=== PATIENT | male | born 1985 | race Hispanic/Latino ===

== ENCOUNTER 2018-09-16 12:53 | Inpatient (IN) | payer MEDICAID, SELFPAY ==
--- NOTE | 2018-09-16 13:09 | C.PDOC ---
History Of Present Illness 32 year old male presents to the ED complaining of swelling and redness to the right upper thigh area for 2 days. Reports it was initially a pimple and then he tried popping it and the redness and swelling increased. Associated symptoms include subjective fever. Also complains of heart palpitations "ongoing for a while". Denies any chest pain, diaphoresis, cough, shortness of breath, nausea or vomiting. Time Seen by Provider: 09/16/18 13:03 Chief Complaint (Nursing): Lower Extremity Problem/Injury History Per: Patient History/Exam Limitations: no limitations Onset/Duration Of Symptoms: Days Current Symptoms Are (Timing): Still Present Quality Of Symptoms: Painful, Swollen Past Medical History Reviewed: Historical Data, Nursing Documentation, Vital Signs Vital Signs: Last Vital Signs Temp 98.6 F 09/16/18 12:58 Pulse 112 H 09/16/18 12:58 Resp 18 09/16/18 12:58 BP 127/83 09/16/18 12:58 Pulse Ox 100 09/16/18 12:58 - Medical History PMH: No Chronic Diseases Surgical History: No Surg Hx Family History: States: No Known Family Hx - Social History Hx Alcohol Use: Yes Hx Substance Use: Yes - Immunization History Hx Tetanus Toxoid Vaccination: No Hx Influenza Vaccination: No Hx Pneumococcal Vaccination: No Review Of Systems Except As Marked, All Systems Reviewed And Found Negative. Constitutional: Positive for: Fever Cardiovascular: Positive for: Palpitations. Negative for: Chest Pain Respiratory: Negative for: Cough, Shortness of Breath Gastrointestinal: Negative for: Nausea, Vomiting Skin: Positive for: Other (swelling and redness to the right upper thigh area) Physical Exam - Physical Exam Appears: Non-toxic, No Acute Distress Skin: Warm, Dry, Other (Cellulitis noted to right upper inner thigh into the groin area. perineum spared. firm induration to inner fold of thigh. no focal fluctuance. healing scab in the middle of the redness. redness extends from right hip around inner groin to thigh and right gluteal fold. ) Head: Normacephalic Eye(s): bilateral: Normal Inspection Neck: Supple Chest: Symmetrical Cardiovascular: Rhythm Regular, No Murmur Respiratory: No Rales, No Rhonchi, No Wheezing, Other (NARD) Male Genital: Other (no abnormality, scrotum normal) Neurological/Psych: Oriented x3, Normal Speech Gait: Steady ED Course And Treatment - Laboratory Results Result Diagrams: 09/16/18 13:43 09/16/18 13:43 O2 Sat by Pulse Oximetry: 100 (RA) Pulse Ox Interpretation: Normal Progress - Re-Evaluation Re-evaluation Note: 09/16/18 16:54 IMPROVED. D/W DR DAMIAN WILL ADMIT - Data Reviewed Data Reviewed: Lab, Diagnostic imaging, EKG, Old records Medical Decision Making Medical Decision Making: Plan - CT lower ext - EKG - Bloodwork - Toradol 30mg IVP - Morphine 2mg IVP - Vancomycin IVPB Disposition Counseled Patient/Family Regarding: Studies Performed, Diagnosis - Disposition Disposition: HOSPITALIZED Disposition Time: 16:55 Condition: SERIOUS Forms: [facility] (Latvian) - POA Present On Arrival: None - Clinical Impression Clinical Impression: Cellulitis of thigh - Scribe Statement The provider has reviewed the documentation as recorded by the Tannaibel Diaz All medical record entries made by the Tannaibel were at my direction and personally dictated by me. I have reviewed the chart and agree that the record accurately reflects my personal performance of the history, physical exam, medical decision making, and the department course for this patient. I have also personally directed, reviewed, and agree with the discharge instructions and disposition.
[2018-09-16] MEDS ORDERED: Vancomycin 1 GM 1 GM/250 ML BAG IVPB ONE (13:28)
[2018-09-16] MEDS ORDERED: Vancomycin 1 GM 1 GM/250 ML BAG IV SCH (13:30)
[2018-09-16 13:50] LABS: BASO # 0.1 K/uL (0.0-0.2); BASO % 0.6 % (0.0-2.0); EOS # 0.1 K/uL (0.0-0.7); EOS % 0.7 % (0.0-4.0); HEMOGLOBIN 14.6 g/dL (12.0-18.0); LYMPH # 1.9 K/uL (1.0-4.3); LYMPH % 11.2 % (20.0-40.0); MEAN CORPUSCULAR HEMOGLOBIN 30.5 pg (27.0-31.0); MEAN CORPUSCULAR HGB CONC 33.9 g/dL (33.0-37.0); MEAN PLATELET VOLUME 9.3 fL (7.2-11.7); MONO # 1.7 K/uL (0.0-0.8); MONO % 9.7 % (0.0-10.0); NEUT # 13.4 K/uL (1.8-7.0); NEUT % 77.8 % (50.0-75.0); NRBC % 0.1 % (0.0-2.0); RBC 4.77 Mil/uL (4.40-5.90); RED CELL DISTRIBUTION WIDTH 12.8 % (11.5-14.5); WHITE BLOOD COUNT 17.2 K/uL (4.8-10.8)
[2018-09-16 14:01] LABS: BLOOD UREA NITROGEN 9 mg/dL (9-20); CALCIUM 9.2 mg/dl (8.6-10.4); GFR NON-AFRICAN AMERICAN > 60
[2018-09-16] MEDS ORDERED: Iodixanol 320 MG/ML 100 ML BOTTLE IV ONE (15:09)
--- NOTE | 2018-09-16 16:40 | CT ---
Date of service: 09/16/2018.. PROCEDURE: CT RIGHT LOWER EXTREMITY. HISTORY: CELLULITIS R INNER THIGH R/O ABSCESS. COMPARISON: None available.. TECHNIQUE: Technique: CT scan of the right lower extremity performed in standard fashion following intravenous injection of approximately 100 cc Visipaque 320 contrast material. Additional 2D sagittal and coronal reformats generated. Radiation dose: Total exam DLP = 336.98 mGy-cm. This CT exam was performed using one or more of the following dose reduction techniques: Automated exposure control, adjustment of the mA and/or kV according to patient size, and/or use of iterative reconstruction technique.. FINDINGS: The current study reveals infiltration and a small amount of what probably represents some interstitial fluid in the subcutaneous tissues/fat of proximal 1/2 medial aspect left thigh with overlying skin thickening consistent with a cellulitis tapering along its inferior border. There are no loculated - drainable fluid or abscess collections identified. No evidence of subcutaneous emphysema. The osseous structures appear intact without evidence of cortical destructive changes. No evidence of acute displaced fracture nor dislocation the BONES: No evidence of acute displaced fracture nor dislocation. Osseous structures appear intact. There are no cortical destructive changes. OTHER FINDINGS: None.. IMPRESSION: Findings consistent with a cellulitis involving the subcutaneous tissues/fat proximal 1/2 medial aspect right thigh with what could represent a small amount of interstitial fluid however no drainable/loculated fluid or abscess collections identified. There is also overlying skin thickening. Findings discussed with Dr. Romero at approximately 4:10 p.m. with written down and read back verification.
[2018-09-16] MEDS: Piperacill/Tazo 3.375gm in Dex 3.375 GM/50 ML BAG IVPB SCH (20:26)
[2018-09-16] MEDS ORDERED: Piperacillin/Tazobact 3.375 gm 100 ML IVPB ONE (20:29)
--- NOTE | 2018-09-16 20:35 | CP.PCM.HP ---
History of Present Illness - History of Present Illness History of Present Illness: PGY-1 Medicine H&P for Dr. Cleveland's service Patient is a 32 y.o male with no significant past medical history presents to emergency department for evaluation of pain on his right upper medial thigh. Patient states that 4 days ago he noted a cyst at that site. He attempted to pop the cyst but then "it went crazy". Patient admits to subjective fevers. Patient states the pain is located on the upper right medial thigh extends downward, rates as a 10/10 constant pain, and described as burning and sharp. Patient states that he took no medications for the pain at home. Patient denies previous episodes of this in the past. Patient admits to fevers. Patient denies chills, chest pain, shortness of breath, n/v, constipation or diarrhea, weakness, dysuria, and discharge/oozing/pus. PMH- Denies PSH- Denies FH- Heart Problems (grandfather) Meds- Denies Allergies- Denies Social- 5 year pack history of smoking 1-2 cigarettes, EtOh use in social occasions, Denies recreational drug use Code: Full Code PMD: Denies Present on Admission - Present on Admission Any Indicators Present on Admission: No Review of Systems - Review of Systems Review of Systems: 12 point ROS obtained and noted as in HPI Past Patient History - Past Social History Smoking Status: Current Some Days Smoker - PSYCHIATRIC Hx Substance Use: Yes - SURGICAL HISTORY Hx Surgeries: No Meds Allergies/Adverse Reactions: Allergies Allergy/AdvReac Type Severity Reaction Status Date / Time No Known Allergies Allergy Unverified 09/16/18 13:01 Physical Exam - Constitutional Appears: Non-toxic, No Acute Distress - Head Exam Head Exam: NORMAL INSPECTION, NORMOCEPHALIC - Eye Exam Eye Exam: EOMI, Normal appearance. absent: Nystagmus, Scleral icterus - ENT Exam ENT Exam: Mucous Membranes Moist - Respiratory Exam Respiratory Exam: Clear to Auscultation Bilateral, NORMAL BREATHING PATTERN. absent: Decreased Breath Sounds, Rales, Rhonchi, Wheezes - Cardiovascular Exam Cardiovascular Exam: REGULAR RHYTHM, +S1, +S2. absent: Tachycardia - GI/Abdominal Exam GI & Abdominal Exam: Normal Bowel Sounds, Soft. absent: Diminished Bowel Sounds, Distended, Firm, Guarding, Tenderness - Extremities Exam Extremities exam: Positive for: normal inspection, tenderness. Negative for: calf tenderness, pedal edema Additional comments: erythema of right upper medial thigh extends downward and upwards to groin area no oozing draining or pus noted central site where boil was popped with black granulation tissue - Neurological Exam Neurological exam: Alert, Oriented x3 - Psychiatric Exam Psychiatric exam: Normal Affect, Normal Mood - Skin Skin Exam: Intact, Normal Color Results - Vital Signs Recent Vital Signs: Last Vital Signs Temp 97.6 F 09/16/18 17:41 Pulse 83 09/16/18 17:41 Resp 16 09/16/18 17:41 BP 122/76 09/16/18 17:41 Pulse Ox 100 09/16/18 17:41 - Labs Result Diagrams: 09/16/18 13:43 09/16/18 13:43 Labs: Laboratory Results - last 24 hr 09/16/18 09/16/18 13:43 13:43 WBC 17.2 H RBC 4.77 Hgb 14.6 Hct 42.9 MCV 90.0 MCH 30.5 MCHC 33.9 RDW 12.8 Plt Count 221 MPV 9.3 Neut % (Auto) 77.8 H Lymph % (Auto) 11.2 L Dickenson % (Auto) 9.7 Eos % (Auto) 0.7 Baso % (Auto) 0.6 Neut # (Auto) 13.4 H Lymph # (Auto) 1.9 Dickenson # (Auto) 1.7 H Eos # (Auto) 0.1 Baso # (Auto) 0.1 Sodium 138 Potassium 4.0 Chloride 95 L Carbon Dioxide 33 H Anion Gap 14 BUN 9 Creatinine 0.9 Est GFR ( Amer) > 60 Est GFR (Non-Af Amer) > 60 Random Glucose 97 Calcium 9.2 Assessment & Plan - Assessment and Plan (Free Text) Assessment: 32 year old male with no pmh is admitted for cellulitis of right upper medial thigh. Plan: Cellulitis CT Lower extremity- Findings consistent w/ a cellulitis involving the subcutaneous tissues/fat proximal 1/2 medial aspect right thigh with what could represent a small amount of interstitial fluid but no abscess collections identified Afebrile Leukocytosis noted Vancomycine 1gm IVPB q 12 freda Zosyn 3.375gm IVPB q6 freda A1C pending PPx GI ppx: not indicated at this time DVT ppx: not indicated at this time
[2018-09-17] MEDS: Piperacill/Tazo 3.375gm in Dex 3.375 GM/50 ML BAG IVPB SCH ×4 (02:30→21:37)
[2018-09-17 07:18] LABS: BASO % 0.2 % (0.0-2.0); EOS # 0.2 K/uL (0.0-0.7); EOS % 1.9 % (0.0-4.0); LYMPH # 1.4 K/uL (1.0-4.3); LYMPH % 10.7 % (20.0-40.0); MEAN CORPUSCULAR HEMOGLOBIN 30.6 pg (27.0-31.0); MEAN PLATELET VOLUME 9.7 fL (7.2-11.7); MONO # 1.1 K/uL (0.0-0.8); NEUT # 9.9 K/uL (1.8-7.0); NEUT % 78.2 % (50.0-75.0); RBC 4.09 Mil/uL (4.40-5.90); RED CELL DISTRIBUTION WIDTH 12.5 % (11.5-14.5); WHITE BLOOD COUNT 12.7 K/uL (4.8-10.8)
[2018-09-17 07:36] LABS: HEMOGLOBIN 12.5 g/dL (12.0-18.0)
[2018-09-17 08:16] LABS: ALB/GLOB RATIO 1.2 (1.0-2.1); ALBUMIN 3.4 g/dL (3.5-5.0); ALT/SGPT 26 U/L (21-72); AST/SGOT 19 U/L (17-59); BLOOD UREA NITROGEN 14 mg/dL (9-20); CALCIUM 8.8 mg/dl (8.6-10.4); GFR NON-AFRICAN AMERICAN > 60
--- NOTE | 2018-09-17 16:37 | CP.PCM.PN ---
Subjective - Date & Time of Evaluation Date of Evaluation: 09/17/18 Time of Evaluation: 09:40 - Subjective Subjective: Medicine progress note ( Dr. Cleveland's service) Patient was seen and examined at bedside. Patient reports that he is doing well and has no acute complaints. Patient denies any symptoms of fever, chills, nausea, vomiting, abdominal pain, chest pain, palpitations and shortness of breath. Patient admits to tolerable pain of right inner thigh cellulitis Objective - Vital Signs/Intake and Output Vital Signs (last 24 hours): Temp Pulse Resp BP Pulse Ox 98.3 F 77 18 120/68 98 09/17/18 07:00 09/17/18 07:00 09/17/18 07:00 09/17/18 07:00 09/17/18 07:00 Intake and Output: 09/17/18 09/17/18 06:59 18:59 Intake Total 420 Balance 420 - Medications Medications: Current Medications Vancomycin HCl (Vancomycin 1gm In Normal Saline Addvantage) 1 gm in 250 mls @ 1 66.667 mls/hr IV STAT [facility]; Protocol Last Admin: 09/16/18 13:42 Dose: 166.667 mls/hr Piperacillin Sod/Tazobactam Sod (Zosyn 3.375 Gm Iv Premix) 3.375 gm in 50 mls @ 200 mls/hr IVPB Q6H [facility]; Protocol Last Admin: 09/17/18 14:15 Dose: 200 mls/hr Vancomycin HCl 1,000 mg/ (Sodium Chloride) 250 mls @ 166.6 mls/hr IVPB Q12H [facility]; Protocol Last Admin: 09/17/18 14:55 Dose: 166.6 mls/hr Ketorolac Tromethamine (Toradol) 30 mg IVP Q6H PRN PRN Reason: Pain, Mild (1-3) Last Admin: 09/16/18 20:58 Dose: 30 mg - Labs Labs: 09/17/18 07:09 09/17/18 07:09 - Constitutional Appears: Well, No Acute Distress - Head Exam Head Exam: ATRAUMATIC, NORMAL INSPECTION - Eye Exam Eye Exam: EOMI, Normal appearance - ENT Exam ENT Exam: Mucous Membranes Moist - Respiratory Exam Respiratory Exam: Clear to Ausculation Bilateral, NORMAL BREATHING PATTERN - Cardiovascular Exam Cardiovascular Exam: REGULAR RHYTHM, +S1, +S2 - GI/Abdominal Exam GI & Abdominal Exam: Soft, Normal Bowel Sounds. absent: Distended, Firm, Guarding, Rigid, Tenderness - Extremities Exam Extremities Exam: absent: Calf Tenderness, Pedal Edema Additional comments: Right upper inner thigh cellulitis without drainage, firm Central site of boil is with black granulation tissue - Back Exam Back Exam: NORMAL INSPECTION - Neurological Exam Neurological Exam: Alert, Awake, Oriented x3 Neuro motor strength exam: Right Lower Extremity: 5 - Psychiatric Exam Psychiatric exam: Normal Affect - Skin Skin Exam: Normal Color Assessment and Plan (1) Cellulitis of right thigh Assessment & Plan: Imaging: * Lower extremity CT (09/16/18): Findings consistent with a cellulitis involving the subcutaneous tissues/fat proximal 1/2 medial aspect right thigh with what could represent a small amount of interstitial fluid however no drainable/loculated fluid or abscess collections identified. There is also overlying skin thickening. Labs: * WBC downtrending * BC negative after 24 hours * No wound culture due to no drainage Medications: Vancomycin 1gm IVPB Q12H Zosyn 3.375gm IVPB Q6H Florastor 250mg PO BID Toradol 30mg IV Q6H PRN F/u HgbA1C Status: Acute (2) Prophylactic measure Assessment & Plan: GI and DVT PPx: Not indicated All plans and management discussed with Dr. Cleveland Status: Acute
[2018-09-17] MEDS: Saccharomyces Boulardi 250 mg Cap PO SCH (17:34)
[2018-09-18] MEDS: Piperacill/Tazo 3.375gm in Dex 3.375 GM/50 ML BAG IVPB SCH ×4 (02:43→19:04)
[2018-09-18 08:02] LABS: BASO % 0.4 % (0.0-2.0); EOS # 0.3 K/uL (0.0-0.7); EOS % 3.3 % (0.0-4.0); HEMOGLOBIN 12.5 g/dL (12.0-18.0); LYMPH # 1.4 K/uL (1.0-4.3); LYMPH % 14.7 % (20.0-40.0); MEAN CELL VOLUME 90.2 fL (80.0-94.0); MEAN CORPUSCULAR HEMOGLOBIN 30.7 pg (27.0-31.0); MEAN PLATELET VOLUME 9.2 fL (7.2-11.7); MONO # 0.8 K/uL (0.0-0.8); NEUT # 6.8 K/uL (1.8-7.0); NEUT % 72.6 % (50.0-75.0); NRBC % 0.1 % (0.0-2.0); RBC 4.07 Mil/uL (4.40-5.90); RED CELL DISTRIBUTION WIDTH 12.6 % (11.5-14.5); WHITE BLOOD COUNT 9.3 K/uL (4.8-10.8)
[2018-09-18 08:23] LABS: ALB/GLOB RATIO 1.2 (1.0-2.1); ALBUMIN 3.4 g/dL (3.5-5.0); ALT/SGPT 21 U/L (21-72); AST/SGOT 15 U/L (17-59); BLOOD UREA NITROGEN 15 mg/dL (9-20); CALCIUM 8.5 mg/dl (8.6-10.4); GFR NON-AFRICAN AMERICAN > 60
--- NOTE | 2018-09-18 08:50 | CP.PCM.PN ---
Subjective - Date & Time of Evaluation Date of Evaluation: 09/18/18 Time of Evaluation: 07:45 - Subjective Subjective: Medicine progress note ( Dr. Cleveland's service) Patient was seen and examined at bedside, resting in bed comfortably. Patient reports that he is doing well and has no acute complaints. Patient denies any symptoms of fever, chills, nausea, vomiting, abdominal pain, chest pain, palpitations and shortness of breath. Patient admits to tolerable pain of right inner thigh cellulitis, however, patient is still with severe pain on palpation. Approximately 10-15cc of pus drainage this morning and culture was taken. Objective - Vital Signs/Intake and Output Vital Signs (last 24 hours): Temp Pulse Resp BP Pulse Ox 98.7 F 98 H 20 164/81 H 98 09/18/18 07:00 09/18/18 07:00 09/18/18 07:00 09/18/18 07:00 09/18/18 07:00 Intake and Output: 09/18/18 09/18/18 06:59 18:59 Intake Total 530 Balance 530 - Medications Medications: Current Medications Piperacillin Sod/Tazobactam Sod (Zosyn 3.375 Gm Iv Premix) 3.375 gm in 50 mls @ 200 mls/hr IVPB Q6H [facility]; Protocol Last Admin: 09/18/18 07:45 Dose: 200 mls/hr Vancomycin HCl 1,000 mg/ (Sodium Chloride) 250 mls @ 166.6 mls/hr IVPB Q12H [facility]; Protocol Last Admin: 09/18/18 01:03 Dose: 166.6 mls/hr Ibuprofen (Motrin Tab) 600 mg PO Q4H PRN PRN Reason: Pain, Mild (1-3) Ketorolac Tromethamine (Toradol) 30 mg IVP Q6H PRN PRN Reason: Pain, severe (8-10) Ketorolac Tromethamine (Toradol) 15 mg IVP Q6 PRN PRN Reason: Pain, moderate (4-7) Saccharomyces Boulardii (Florastor) 250 mg PO BID [facility] Last Admin: 09/17/18 17:34 Dose: 250 mg - Labs Labs: 09/18/18 07:53 09/18/18 07:53 - Constitutional Appears: Well, No Acute Distress - Head Exam Head Exam: ATRAUMATIC, NORMAL INSPECTION - Eye Exam Eye Exam: EOMI, Normal appearance - ENT Exam ENT Exam: Mucous Membranes Moist - Respiratory Exam Respiratory Exam: Clear to Ausculation Bilateral, NORMAL BREATHING PATTERN. absent: Chest Wall Tenderness, Decreased Breath Sounds, Prolonged Expiratory Phase, Rales, Rhonchi, Wheezes - Cardiovascular Exam Cardiovascular Exam: REGULAR RHYTHM, +S1, +S2 - GI/Abdominal Exam GI & Abdominal Exam: Soft, Normal Bowel Sounds. absent: Firm, Guarding, Rigid, Tenderness - Extremities Exam Extremities Exam: Normal Inspection. absent: Calf Tenderness, Pedal Edema Additional comments: Right upper inner thigh cellulitis currently with drainage still firm Central site of boil is with pus and blood drainage - Back Exam Back Exam: absent: CVA tenderness (L), CVA tenderness (R) - Neurological Exam Neurological Exam: Alert, Awake, Oriented x3 - Psychiatric Exam Psychiatric exam: Normal Affect, Normal Mood - Skin Skin Exam: Normal Color Assessment and Plan (1) Cellulitis of right thigh Assessment & Plan: Consultation: General Surgery, Dr. Thompson * Management as per recommendation Imaging: * Lower extremity CT (09/16/18): Findings consistent with a cellulitis involving the subcutaneous tissues/fat proximal 1/2 medial aspect right thigh with what could represent a small amount of interstitial fluid however no draina ble/loculated fluid or abscess collections identified. There is also overlying skin thickening. Labs: * WBC downtrending * BC negative after 24 hours * Follow up wound culture * Motrin 600mg PO Q6H PRN (Mild pain control) * Toradol 15mg IV Q6H PRN (Moderate pain control_ * Toradol 30mg IV Q6H PRN (Severe pain control) * HgbA1C: 4.8 Medications: Vancomycin 1gm IVPB Q12H, Vanc trough 09/18/18: 8.6 Zosyn 3.375gm IVPB Q6H Florastor 250mg PO BID Motrin 600mg PO Q6H PRN (Mild pain control) Toradol 15mg IV Q6H PRN (Moderate pain control_ Toradol 30mg IV Q6H PRN (Severe pain control) Status: Acute (2) Prophylactic measure Assessment & Plan: DVT PPx: SCDs, no chemical agent indicated at this time GI: Not indicated at this time All plans and management discussed with Dr. Cleveland Status: Acute
[2018-09-18] MEDS: Saccharomyces Boulardi 250 mg Cap PO SCH ×2 (10:17→19:04)
[2018-09-18] MEDS ORDERED: Bupivacaine-Epi 0.5%-1:200,000 PF Inj IJ ONE (16:26)
--- NOTE | 2018-09-18 18:49 | CP.PCM.CON ---
History of Present Illness - History of Present Illness History of Present Illness: General Surgery Consult Note for Dr. Thompson This is a 32M with no PMH who presents with four days of erythema, pain and swelling in his proximal right thigh. He was admitted and started on IV abx. The cellulitis improved significantly, however earlier today the cellutlitis collected and the skin broke and 15cc of purulence was expressed according to the medical records technician. At that time surgery was consulted. The patient denies any fevers chills chest pain or any new or concerning symptoms. I discussed with the patient that it maybe possible for this to continue draining and to resolve with warm compresses or I can surgically drain the remainder of the collection. He requested surgical incision and drainage. PMH- Denies PSH- Denies FH- Heart Problems (grandfather) Meds- Denies Allergies- Denies Social- 5 year pack history of smoking 1-2 cigarettes, EtOh use in social occasions, Denies recreational drug use Code: Full Code PMD: Denies Review of Systems - Review of Systems Review of Systems: 12 point review of symptoms conducted and negtaive except for erythema and swelling of her proximal thigh Past Patient History - Past Medical History & Family History Past Medical History?: Yes - Past Social History Smoking Status: Current Some Days Smoker - CARDIAC Hx Cardiac Disorders: No - PULMONARY Hx Respiratory Disorders: No - HEENT Hx HEENT Problems: No - RENAL Hx Chronic Kidney Disease: No - ENDOCRINE/METABOLIC Hx Endocrine Disorders: No - HEMATOLOGICAL/ONCOLOGICAL Hx Blood Disorders: No - INTEGUMENTARY Other/Comment: Cellulitis on right upper groin - MUSCULOSKELETAL/RHEUMATOLOGICAL Hx Musculoskeletal Disorders: No Hx Falls: No - GASTROINTESTINAL Hx Gastrointestinal Disorders: No - GENITOURINARY/GYNECOLOGICAL Hx Genitourinary Disorders: No - PSYCHIATRIC Hx Substance Use: Yes - SURGICAL HISTORY Hx Surgeries: No - ANESTHESIA Hx Anesthesia: No Hx Anesthesia Reactions: No Hx Malignant Hyperthermia: No Has any member of the family had a problem w/ anesthesia?: No Meds Allergies/Adverse Reactions: Allergies Allergy/AdvReac Type Severity Reaction Status Date / Time No Known Allergies Allergy Unverified 09/16/18 13:01 - Medications Medications: Current Medications Piperacillin Sod/Tazobactam Sod (Zosyn 3.375 Gm Iv Premix) 3.375 gm in 50 mls @ 200 mls/hr IVPB Q6H [facility]; Protocol Last Admin: 09/18/18 14:10 Dose: 200 mls/hr Vancomycin HCl 1,000 mg/ (Sodium Chloride) 250 mls @ 166.6 mls/hr IVPB Q12H [facility]; Protocol Last Admin: 09/18/18 12:46 Dose: 166.6 mls/hr Ibuprofen (Motrin Tab) 600 mg PO Q4H PRN PRN Reason: Pain, Mild (1-3) Ketorolac Tromethamine (Toradol) 30 mg IVP Q6H PRN PRN Reason: Pain, severe (8-10) Ketorolac Tromethamine (Toradol) 15 mg IVP Q6 PRN PRN Reason: Pain, moderate (4-7) Saccharomyces Boulardii (Florastor) 250 mg PO BID [facility] Last Admin: 09/18/18 10:17 Dose: 250 mg Physical Exam - Constitutional Appears: Non-toxic, No Acute Distress - Head Exam Head Exam: ATRAUMATIC, NORMOCEPHALIC - Eye Exam Eye Exam: EOMI - ENT Exam ENT Exam: Mucous Membranes Moist - Respiratory Exam Respiratory Exam: NORMAL BREATHING PATTERN - Cardiovascular Exam Cardiovascular Exam: +S1, +S2 - GI/Abdominal Exam GI & Abdominal Exam: Soft. absent: Tenderness - Extremities Exam Additional comments: right proximl thigh with swelling and erythema, with fluctuance - Neurological Exam Neurological exam: Alert, Oriented x3 - Psychiatric Exam Psychiatric exam: Normal Affect, Normal Mood - Skin Skin Exam: Dry, Intact Results - Vital Signs Recent Vital Signs: Last Vital Signs Temp 97.2 F L 09/18/18 15:00 Pulse 87 09/18/18 15:00 Resp 20 09/18/18 15:00 BP 107/58 L 09/18/18 15:00 Pulse Ox 98 09/18/18 15:00 - Labs Result Diagrams: 09/18/18 07:53 09/18/18 07:53 Labs: Laboratory Results - last 24 hr 09/17/18 09/18/18 09/18/18 07:09 07:53 07:53 WBC 9.3 RBC 4.07 L Hgb 12.5 Hct 36.8 MCV 90.2 MCH 30.7 MCHC 34.0 RDW 12.6 Plt Count 248 MPV 9.2 Neut % (Auto) 72.6 Lymph % (Auto) 14.7 L Iron % (Auto) 9.0 Eos % (Auto) 3.3 Baso % (Auto) 0.4 Neut # (Auto) 6.8 Lymph # (Auto) 1.4 Iron # (Auto) 0.8 Eos # (Auto) 0.3 Baso # (Auto) 0.0 Sodium 141 Potassium 4.3 Chloride 104 Carbon Dioxide 27 Anion Gap 13 BUN 15 Creatinine 0.8 Est GFR ( Amer) > 60 Est GFR (Non-Af Amer) > 60 Random Glucose 99 Hemoglobin A1c 4.8 Calcium 8.5 L Phosphorus 3.7 Magnesium 2.1 Total Bilirubin 0.4 AST 15 L D ALT 21 Alkaline Phosphatase 88 Total Protein 6.3 Albumin 3.4 L Globulin 2.8 Albumin/Globulin Ratio 1.2 Vancomycin Trough 09/18/18 11:12 WBC RBC Hgb Hct MCV MCH MCHC RDW Plt Count MPV Neut % (Auto) Lymph % (Auto) Iron % (Auto) Eos % (Auto) Baso % (Auto) Neut # (Auto) Lymph # (Auto) Iron # (Auto) Eos # (Auto) Baso # (Auto) Sodium Potassium Chloride Carbon Dioxide Anion Gap BUN Creatinine Est GFR ( Amer) Est GFR (Non-Af Amer) Random Glucose Hemoglobin A1c Calcium Phosphorus Magnesium Total Bilirubin AST ALT Alkaline Phosphatase Total Protein Albumin Globulin Albumin/Globulin Ratio Vancomycin Trough 8.6 Assessment & Plan - Assessment and Plan (Free Text) Assessment: 32M with uncomplicated thigh abscess Bedside inscsion and draingage continue medical managment per primary team. D/W Dr. Jay Gomez PGY3 Procedures - Time-Out Type of Procedure: Inscision and drainge Site of Procedure: Right thigh Correct Patient: Yes Correct Procedure: Yes X-Ray Marked: Yes Physician Name: Dr. Gomez - Incision and Drainage Site: Right proximal thigh Blade Size: 11 I & D Procedure: betadine prep Progress: An incision and counter incision was made and the wound was packed with 1/2incgh iodoform packing to achieve hemostasis.
[2018-09-19] MEDS: Piperacill/Tazo 3.375gm in Dex 3.375 GM/50 ML BAG IVPB SCH ×4 (02:00→20:52)
[2018-09-19 06:42] LABS: BASO % 0.4 % (0.0-2.0); EOS # 0.3 K/uL (0.0-0.7); EOS % 3.7 % (0.0-4.0); HEMOGLOBIN 12.3 g/dL (12.0-18.0); LYMPH # 1.6 K/uL (1.0-4.3); LYMPH % 18.7 % (20.0-40.0); MEAN CELL VOLUME 89.2 fL (80.0-94.0); MEAN CORPUSCULAR HEMOGLOBIN 29.9 pg (27.0-31.0); MEAN CORPUSCULAR HGB CONC 33.5 g/dL (33.0-37.0); MONO # 0.9 K/uL (0.0-0.8); NEUT # 5.7 K/uL (1.8-7.0); NEUT % 67.2 % (50.0-75.0); NRBC % 0.1 % (0.0-2.0); RBC 4.13 Mil/uL (4.40-5.90); RED CELL DISTRIBUTION WIDTH 12.5 % (11.5-14.5); WHITE BLOOD COUNT 8.5 K/uL (4.8-10.8)
[2018-09-19 07:00] LABS: ALB/GLOB RATIO 1.2 (1.0-2.1); ALBUMIN 3.3 g/dL (3.5-5.0); ALT/SGPT 25 U/L (21-72); AST/SGOT 18 U/L (17-59); BLOOD UREA NITROGEN 14 mg/dL (9-20); CALCIUM 8.4 mg/dl (8.6-10.4); GFR NON-AFRICAN AMERICAN > 60
[2018-09-19] MEDS: Saccharomyces Boulardi 250 mg Cap PO SCH ×2 (09:36→17:25)
--- NOTE | 2018-09-19 11:14 | CP.PCM.PN ---
Subjective - Date & Time of Evaluation Date of Evaluation: 09/19/18 Time of Evaluation: 07:00 - Subjective Subjective: Surgery progres note for Dr. Thompson Pt seen and examined this AM. No adverse events overnight. Patient reports pain in the groin but denies fevers or chills. Patient expressed desire to leave the hospital but was informed that that could have severe consequences including a systemic infection. Objective - Vital Signs/Intake and Output Vital Signs (last 24 hours): Temp Pulse Resp BP Pulse Ox 98 F 72 18 111/68 98 09/19/18 08:19 09/19/18 08:19 09/19/18 08:19 09/19/18 08:19 09/19/18 08:19 Intake and Output: 09/19/18 09/19/18 06:59 18:59 Intake Total 530 Balance 530 - Medications Medications: Current Medications Piperacillin Sod/Tazobactam Sod (Zosyn 3.375 Gm Iv Premix) 3.375 gm in 50 mls @ 200 mls/hr IVPB Q6H [facility]; Protocol Last Admin: 09/19/18 07:47 Dose: 200 mls/hr Vancomycin HCl 1,000 mg/ (Sodium Chloride) 250 mls @ 166.6 mls/hr IVPB Q12H [facility]; Protocol Last Admin: 09/19/18 01:15 Dose: 166.6 mls/hr Ibuprofen (Motrin Tab) 600 mg PO Q4H PRN PRN Reason: Pain, Mild (1-3) Ketorolac Tromethamine (Toradol) 30 mg IVP Q6H PRN PRN Reason: Pain, severe (8-10) Last Admin: 09/19/18 05:17 Dose: 30 mg Ketorolac Tromethamine (Toradol) 15 mg IVP Q6 PRN PRN Reason: Pain, moderate (4-7) Saccharomyces Boulardii (Florastor) 250 mg PO BID [facility] Last Admin: 09/19/18 09:36 Dose: 250 mg - Labs Labs: 09/19/18 06:36 09/19/18 06:36 - Constitutional Appears: Well, Non-toxic, No Acute Distress - Head Exam Head Exam: ATRAUMATIC, NORMOCEPHALIC - Eye Exam Eye Exam: Normal appearance. absent: Conjunctival injection, Scleral icterus - ENT Exam ENT Exam: Mucous Membranes Moist, Normal Oropharynx - Respiratory Exam Respiratory Exam: NORMAL BREATHING PATTERN. absent: Accessory Muscle Use, Respiratory Distress - Cardiovascular Exam Cardiovascular Exam: RRR - GI/Abdominal Exam GI & Abdominal Exam: Soft. absent: Distended - Extremities Exam Extremities Exam: absent: Calf Tenderness, Pedal Edema Additional comments: right upper thigh with incision site with packing in place, moderate amount of thick, purulent fluid drainage expressed. moderate amount of surrounding erythema and induration - Neurological Exam Neurological Exam: Alert, Awake, Oriented x3 - Psychiatric Exam Psychiatric exam: Agitated, Normal Affect - Skin Skin Exam: Dry, Normal Color, Warm Assessment and Plan - Assessment and Plan (Free Text) Assessment: 32M with right groin abscess POD #1 s/p incision and drainage Plan: Continue antibiotics Continue PRN pain medications F/U culture Trend CBC Continue daily packing changes Discussed with DR. Jay Nascimento, PGY2
--- NOTE | 2018-09-19 13:45 | CP.PCM.PN ---
<Levar Maxwell - Last Filed: 09/19/18 13:42> Subjective - Date & Time of Evaluation Date of Evaluation: 09/19/18 Time of Evaluation: 13:42 - Subjective Subjective: PGY-1 Medicine Progress Note for Dr. Gutierrez's service Patient seen and examined at bedside. Patient states his leg is sore near the site of I&D. POD 1 s/p I&D. Patient reports mild headache. Patient denies fevers, chills, chest pain, sob, n/v, constipation or diarrhea, dysuria, and palpitations. Objective - Vital Signs/Intake and Output Vital Signs (last 24 hours): Temp Pulse Resp BP Pulse Ox 98 F 72 18 111/68 98 09/19/18 08:19 09/19/18 08:19 09/19/18 08:19 09/19/18 08:19 09/19/18 08:19 Intake and Output: 09/19/18 09/19/18 06:59 18:59 Intake Total 530 Balance 530 - Medications Medications: Current Medications Piperacillin Sod/Tazobactam Sod (Zosyn 3.375 Gm Iv Premix) 3.375 gm in 50 mls @ 200 mls/hr IVPB Q6H [facility]; Protocol Last Admin: 09/19/18 07:47 Dose: 200 mls/hr Vancomycin HCl 1,000 mg/ (Sodium Chloride) 250 mls @ 166.6 mls/hr IVPB Q12H [facility]; Protocol Last Admin: 09/19/18 13:18 Dose: 166.6 mls/hr Ibuprofen (Motrin Tab) 600 mg PO Q4H PRN PRN Reason: Pain, Mild (1-3) Ketorolac Tromethamine (Toradol) 30 mg IVP Q6H PRN PRN Reason: Pain, severe (8-10) Last Admin: 09/19/18 05:17 Dose: 30 mg Ketorolac Tromethamine (Toradol) 15 mg IVP Q6 PRN PRN Reason: Pain, moderate (4-7) Saccharomyces Boulardii (Florastor) 250 mg PO BID [facility] Last Admin: 09/19/18 09:36 Dose: 250 mg - Labs Labs: 09/19/18 06:36 09/19/18 06:36 - Additional Findings Additional findings: - Constitutional Appears: Well, No Acute Distress - Head Exam Head Exam: ATRAUMATIC, NORMAL INSPECTION - Eye Exam Eye Exam: EOMI, Normal appearance - ENT Exam ENT Exam: Mucous Membranes Moist - Respiratory Exam Respiratory Exam: Clear to Ausculation Bilateral, NORMAL BREATHING PATTERN. absent: Chest Wall Tenderness, Decreased Breath Sounds, Prolonged Expiratory Phase, Rales, Rhonchi, Wheezes - Cardiovascular Exam Cardiovascular Exam: REGULAR RHYTHM, +S1, +S2 - GI/Abdominal Exam GI & Abdominal Exam: Soft, Normal Bowel Sounds. absent: Firm, Guarding, Rigid, Tenderness - Extremities Exam Extremities Exam: Normal Inspection. absent: Calf Tenderness, Pedal Edema Additional comments: Right upper inner thigh cellulitis packed Regressing from initial from demarcation; noted less swelling/erythema from admission - Back Exam Back Exam: absent: CVA tenderness (L), CVA tenderness (R) - Neurological Exam Neurological Exam: Alert, Awake, Oriented x3 - Psychiatric Exam Psychiatric exam: Normal Affect, Normal Mood - Skin Skin Exam: Normal Color Assessment and Plan - Assessment and Plan (Free Text) Assessment: 32 yo male with no PMH admitted for right upper medial thigh cellulitis. Surgery was consulted for I&D. POD 1 s/p I&D. Wound culture pending. Patient currently on IV Vanc/Zosyn. Will de-escalate pending cultures. Plan: Cellulitis Surgery Consulted- Dr. Thompson- POD 1 s/p I&D. Wound culture pending CT Lower extremity- Findings consistent w/ a cellulitis involving the subcutaneous tissues/fat proximal 1/2 medial aspect right thigh with what could represent a small amount of interstitial fluid but no abscess collections identified Afebrile Leukocytosis trending downwards Vancomycin 1gm IVPB q 12 freda; Vanc trough 6.8 Zosyn 3.375gm IVPB q6 freda PPx GI ppx: Florastor 250mg po bid DVT ppx: Patient is ambulatory for DVT ppx Lvear Maxwell PGY-1 Medical Management d/w with Dr. Gutierrez <Doc Gutierrez - Last Filed: 09/19/18 15:14> Objective - Vital Signs/Intake and Output Vital Signs (last 24 hours): Temp Pulse Resp BP Pulse Ox 98 F 72 18 111/68 98 09/19/18 08:19 09/19/18 08:19 09/19/18 08:19 09/19/18 08:19 09/19/18 08:19 Intake and Output: 09/19/18 09/19/18 06:59 18:59 Intake Total 530 Balance 530 - Medications Medications: Current Medications Piperacillin Sod/Tazobactam Sod (Zosyn 3.375 Gm Iv Premix) 3.375 gm in 50 mls @ 200 mls/hr IVPB Q6H [facility]; Protocol Last Admin: 09/19/18 14:45 Dose: 200 mls/hr Vancomycin HCl 1,000 mg/ (Sodium Chloride) 250 mls @ 166.6 mls/hr IVPB Q12H [facility]; Protocol Last Admin: 09/19/18 13:18 Dose: 166.6 mls/hr Ibuprofen (Motrin Tab) 600 mg PO Q4H PRN PRN Reason: Pain, Mild (1-3) Ketorolac Tromethamine (Toradol) 30 mg IVP Q6H PRN PRN Reason: Pain, severe (8-10) Last Admin: 09/19/18 05:17 Dose: 30 mg Ketorolac Tromethamine (Toradol) 15 mg IVP Q6 PRN PRN Reason: Pain, moderate (4-7) Saccharomyces Boulardii (Florastor) 250 mg PO BID [facility] Last Admin: 09/19/18 09:36 Dose: 250 mg - Labs Labs: 09/19/18 06:36 09/19/18 06:36 Attending/Attestation - Attestation I have personally seen and examined this patient.: Yes I have fully participated in the care of the patient.: Yes I have reviewed all pertinent clinical information, including history, physical exam and plan: Yes Notes (Text): 09/19/18 15:14 Medical attending: Patient was seen and examined by me, the above note by the medical transcriber and agree with the above The patient at this time remains on IV antibiotics, as documented above patient had a bedside I&D of the area that is in the left inner thigh. The area of erythema had already been outlined and it appears to be improving substantially. The patient says that it swing tender on palpation. And he still has some pain with walking. Waiting on the cultures to return at this The white blood cell count remained stable the patient is afebrile Doc Gutierrez
[2018-09-19 16:10] VITALS: RESP 20
--- NOTE | 2018-09-19 19:45 | CARD ---
APPROVED REPORT Date of service: 09/16/2018 EKG Measurement Heart [id number] <Conclusion> Sinus tachycardia Otherwise normal ECG
[2018-09-19] MEDS ORDERED: Piperacill/Tazo 3.375gm in Dex 3.375 GM/50 ML BAG IVPB ONE (21:00)
[2018-09-20 06:53] LABS: BASO # 0.1 K/uL (0.0-0.2); BASO % 0.8 % (0.0-2.0); EOS # 0.3 K/uL (0.0-0.7); EOS % 4.3 % (0.0-4.0); HEMOGLOBIN 12.7 g/dL (12.0-18.0); LYMPH # 1.7 K/uL (1.0-4.3); LYMPH % 24.8 % (20.0-40.0); MEAN CELL VOLUME 89.1 fL (80.0-94.0); MEAN CORPUSCULAR HEMOGLOBIN 30.1 pg (27.0-31.0); MEAN CORPUSCULAR HGB CONC 33.8 g/dL (33.0-37.0); MEAN PLATELET VOLUME 8.8 fL (7.2-11.7); MONO # 0.6 K/uL (0.0-0.8); MONO % 9.6 % (0.0-10.0); NEUT # 4.1 K/uL (1.8-7.0); NEUT % 60.5 % (50.0-75.0); RBC 4.21 Mil/uL (4.40-5.90); RED CELL DISTRIBUTION WIDTH 12.3 % (11.5-14.5); WHITE BLOOD COUNT 6.7 K/uL (4.8-10.8)
[2018-09-20 07:25] LABS: ALB/GLOB RATIO 1.1 (1.0-2.1); ALBUMIN 3.4 g/dL (3.5-5.0); ALT/SGPT 26 U/L (21-72); AST/SGOT 18 U/L (17-59); BLOOD UREA NITROGEN 16 mg/dL (9-20); CALCIUM 8.9 mg/dl (8.6-10.4); GFR NON-AFRICAN AMERICAN > 60
[2018-09-20] MEDS: Saccharomyces Boulardi 250 mg Cap PO SCH ×2 (10:45→17:20)
[2018-09-20] MEDS: Vancomycin 1 gm/NS 200 ml 1 GM/200 ML BAG IVPB SCH (14:15)
--- NOTE | 2018-09-20 14:18 | CP.PCM.PN ---
<Levar Maxwell - Last Filed: 09/20/18 15:04> Subjective - Date & Time of Evaluation Date of Evaluation: 09/20/18 Time of Evaluation: 11:15 - Subjective Subjective: PGY-1 Medicine Progress Note for Dr. Gutierrez's service Patient was seen and examined at bedside today. He states that his right medial thigh is still sore 06/03. He is POD #2 s/p I&D. Patient denies any fever, headache, chest pain, palpitation, shortness of breath, n/v, diarrhea, abdominal pain or dysuria. Objective - Vital Signs/Intake and Output Vital Signs (last 24 hours): Temp Pulse Resp BP Pulse Ox 98.2 F 60 20 124/75 96 09/20/18 07:30 09/20/18 07:30 09/20/18 07:30 09/20/18 07:30 09/20/18 07:30 - Medications Medications: Current Medications Vancomycin/Sodium Chloride (Vancomycin 1 Gm/Ns 200 Ml) 1 gm in 200 mls @ 133 mls/hr IVPB Q12H [facility]; Protocol Stop: 09/25/18 13:01 Ibuprofen (Motrin Tab) 600 mg PO Q4H PRN PRN Reason: Pain, Mild (1-3) Saccharomyces Boulardii (Florastor) 250 mg PO BID [facility] Last Admin: 09/20/18 10:45 Dose: 250 mg - Labs Labs: 09/20/18 06:44 09/20/18 06:44 - Constitutional Appears: Well, No Acute Distress - Head Exam Head Exam: ATRAUMATIC, NORMOCEPHALIC - Respiratory Exam Respiratory Exam: Clear to Ausculation Bilateral, NORMAL BREATHING PATTERN. absent: Accessory Muscle Use, Rales, Rhonchi, Wheezes - Cardiovascular Exam Cardiovascular Exam: REGULAR RHYTHM, +S1, +S2. absent: JVD - GI/Abdominal Exam GI & Abdominal Exam: Soft, Normal Bowel Sounds. absent: Distended, Guarding, Tenderness - Extremities Exam Extremities Exam: Normal Inspection. absent: Pedal Edema - Neurological Exam Neurological Exam: Alert, Awake, Oriented x3 - Psychiatric Exam Psychiatric exam: Normal Affect, Normal Mood - Skin Skin Exam: Intact, Normal Color Assessment and Plan - Assessment and Plan (Free Text) Assessment: 32 yo male with no PMH admitted for right upper medial thigh cellulitis. Surgery was consulted for I&D. POD 2 s/p I&D. Wound culture shows MRSA. Patient was on IV Vanc/Zosyn D/C but restarted IV Vanco after wound culture showing MRSA. Plan: Cellulitis Surgery Consulted- Dr. Thompson- POD 2 s/p I&D. Wound culture shows MRSA sensitive to vancomycin and clindamycin CT Lower extremity- Findings consistent w/ a cellulitis involving the subcutaneous tissues/fat proximal 1/2 medial aspect right thigh with what could represent a small amount of interstitial fluid but no abscess collections identified Afebrile; Leukocytosis trending downwards Vancomycin 1gm IVPB q 12 freda; Vanc trough 6.8 Ibuprofen 600mg PO q4h PRN PPx GI ppx: Florastor 250mg po bid DVT ppx: Patient is ambulatory for DVT ppx Levar Maxwell PGY-1 Medical Management d/w with Dr. Gutierrez <Doc Gutierrez - Last Filed: 09/20/18 15:17> Objective - Vital Signs/Intake and Output Vital Signs (last 24 hours): Temp Pulse Resp BP Pulse Ox 98.2 F 60 20 124/75 96 09/20/18 07:30 09/20/18 07:30 09/20/18 07:30 09/20/18 07:30 09/20/18 07:30 - Medications Medications: Current Medications Vancomycin/Sodium Chloride (Vancomycin 1 Gm/Ns 200 Ml) 1 gm in 200 mls @ 133 mls/hr IVPB Q12H [facility]; Protocol Stop: 09/25/18 13:01 Last Admin: 09/20/18 14:15 Dose: 133 mls/hr Ibuprofen (Motrin Tab) 600 mg PO Q4H PRN PRN Reason: Pain, Mild (1-3) Saccharomyces Boulardii (Florastor) 250 mg PO BID [facility]A Last Admin: 09/20/18 10:45 Dose: 250 mg - Labs Labs: 09/20/18 06:44 09/20/18 06:44 Attending/Attestation - Attestation I have personally seen and examined this patient.: Yes I have fully participated in the care of the patient.: Yes I have reviewed all pertinent clinical information, including history, physical exam and plan: Yes Notes (Text): 09/20/18 15:10 Medical attending: Patient was seen and examined by me. Agree with the above note by the resident The patient was not in any acute distress at this time. We watched patient ambulate with PT - he need some assistance and walked slowly he says due to the pain Per inspection of the wound area he still has packing and there area of erythema appears to be less as well The patient denied fevers or chills. Tolerating diet. The would culture returned and showed there was staph growth Doc Gutierrez
--- NOTE | 2018-09-20 14:40 | CP.PCM.PN ---
Subjective - Date & Time of Evaluation Date of Evaluation: 09/20/18 Time of Evaluation: 14:38 - Subjective Subjective: General Surgery Progress Note for Dr. Thompson This 32M was seen and examined this AM at bedside. No adverse events overnight. Packing was changed this AM. 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 Reports no change from previous day. No new complaints at this time. Objective - Vital Signs/Intake and Output Vital Signs (last 24 hours): Temp Pulse Resp BP Pulse Ox 98.2 F 60 20 124/75 96 09/20/18 07:30 09/20/18 07:30 09/20/18 07:30 09/20/18 07:30 09/20/18 07:30 - Medications Medications: Current Medications Vancomycin/Sodium Chloride (Vancomycin 1 Gm/Ns 200 Ml) 1 gm in 200 mls @ 133 mls/hr IVPB Q12H [facility]; Protocol Stop: 09/25/18 13:01 Last Admin: 09/20/18 14:15 Dose: 133 mls/hr Ibuprofen (Motrin Tab) 600 mg PO Q4H PRN PRN Reason: Pain, Mild (1-3) Saccharomyces Boulardii (Florastor) 250 mg PO BID [facility] Last Admin: 09/20/18 10:45 Dose: 250 mg - Labs Labs: 09/20/18 06:44 09/20/18 06:44 - Constitutional Appears: Well, Non-toxic, No Acute Distress - Head Exam Head Exam: ATRAUMATIC, NORMOCEPHALIC - Eye Exam Eye Exam: Normal appearance. absent: Conjunctival injection, Scleral icterus - ENT Exam ENT Exam: Mucous Membranes Moist, Normal Oropharynx - Respiratory Exam Respiratory Exam: NORMAL BREATHING PATTERN. absent: Accessory Muscle Use, Respiratory Distress - Cardiovascular Exam Cardiovascular Exam: RRR - GI/Abdominal Exam GI & Abdominal Exam: Soft. absent: Distended - Extremities Exam Extremities Exam: absent: Calf Tenderness, Pedal Edema Additional comments: right upper thigh with incision site with packing in place, purulent fluid drainage expressed. - Neurological Exam Neurological Exam: Alert, Awake, Oriented x3 - Psychiatric Exam Psychiatric exam: Agitated, Normal Affect - Skin Skin Exam: Dry, Normal Color, Warm Assessment and Plan - Assessment and Plan (Free Text) Assessment: 32M with right groin abscess POD #2 s/p incision and drainage CX: MRSA Plan: Continue antibiotics Continue PRN pain medications F/U culture Trend CBC Continue daily packing changes Discussed with Dr. Jay Gomez PGY3
[2018-09-21] MEDS: Vancomycin 1 gm/NS 200 ml 1 GM/200 ML BAG IVPB SCH ×2 (00:30→16:13)
[2018-09-21 06:56] LABS: BASO # 0.1 K/uL (0.0-0.2); BASO % 0.7 % (0.0-2.0); EOS # 0.3 K/uL (0.0-0.7); EOS % 3.9 % (0.0-4.0); HEMOGLOBIN 13.2 g/dL (12.0-18.0); LYMPH # 1.9 K/uL (1.0-4.3); LYMPH % 28.4 % (20.0-40.0); MEAN CELL VOLUME 88.8 fL (80.0-94.0); MEAN CORPUSCULAR HEMOGLOBIN 29.9 pg (27.0-31.0); MEAN CORPUSCULAR HGB CONC 33.7 g/dL (33.0-37.0); MEAN PLATELET VOLUME 8.6 fL (7.2-11.7); MONO # 0.8 K/uL (0.0-0.8); MONO % 11.6 % (0.0-10.0); NEUT # 3.8 K/uL (1.8-7.0); NEUT % 55.4 % (50.0-75.0); RBC 4.42 Mil/uL (4.40-5.90); RED CELL DISTRIBUTION WIDTH 12.6 % (11.5-14.5); WHITE BLOOD COUNT 6.8 K/uL (4.8-10.8)
[2018-09-21 08:07] LABS: ALB/GLOB RATIO 1.3 (1.0-2.1); ALBUMIN 3.8 g/dL (3.5-5.0); ALT/SGPT 24 U/L (21-72); AST/SGOT 19 U/L (17-59); BLOOD UREA NITROGEN 18 mg/dL (9-20); GFR NON-AFRICAN AMERICAN > 60
[2018-09-21] MEDS: Saccharomyces Boulardi 250 mg Cap PO SCH ×2 (10:30→17:42)
--- NOTE | 2018-09-21 14:37 | CP.PCM.PN ---
<Levar Maxwell - Last Filed: 09/21/18 14:40> Subjective - Date & Time of Evaluation Date of Evaluation: 09/21/18 Time of Evaluation: 10:30 - Subjective Subjective: PGY-1 Medicine Progress Note for Dr. Gutierrez's service Patient was seen and examined at bedside today. He states that he still has the right medial thigh pain and soreness. He is POD #3 s/p I&D. Patient denies any fever, headache, chest pain, palpitation, shortness of breath, n/v, diarrhea, abdominal pain or dysuria. Objective - Vital Signs/Intake and Output Vital Signs (last 24 hours): Temp Pulse Resp BP Pulse Ox 97.7 F 72 20 111/70 98 09/21/18 07:00 09/21/18 07:00 09/21/18 07:00 09/21/18 07:00 09/21/18 07:00 - Medications Medications: Current Medications Vancomycin/Sodium Chloride (Vancomycin 1 Gm/Ns 200 Ml) 1 gm in 200 mls @ 133 mls/hr IVPB Q12H [facility]; Protocol Stop: 09/25/18 13:01 Last Admin: 09/21/18 00:30 Dose: 133 mls/hr Ibuprofen (Motrin Tab) 600 mg PO Q4H PRN PRN Reason: Pain, Mild (1-3) Last Admin: 09/21/18 10:29 Dose: 600 mg Saccharomyces Boulardii (Florastor) 250 mg PO BID FREDA Last Admin: 09/21/18 10:30 Dose: 250 mg - Labs Labs: 09/21/18 06:51 09/21/18 06:51 - Constitutional Appears: Well, No Acute Distress - Head Exam Head Exam: ATRAUMATIC, NORMOCEPHALIC - Eye Exam Eye Exam: EOMI, Normal appearance. absent: Nystagmus, Scleral icterus Pupil Exam: NORMAL ACCOMODATION, PERRL - ENT Exam ENT Exam: Mucous Membranes Moist, Normal Exam - Respiratory Exam Respiratory Exam: Clear to Ausculation Bilateral, NORMAL BREATHING PATTERN. absent: Accessory Muscle Use, Rales, Rhonchi, Wheezes - Cardiovascular Exam Cardiovascular Exam: REGULAR RHYTHM, +S1, +S2 - GI/Abdominal Exam GI & Abdominal Exam: Soft, Normal Bowel Sounds. absent: Tenderness - Extremities Exam Extremities Exam: Normal Inspection. absent: Calf Tenderness, Pedal Edema - Neurological Exam Neurological Exam: Alert, Awake, Oriented x3 - Psychiatric Exam Psychiatric exam: Normal Affect, Normal Mood - Skin Skin Exam: Intact, Normal Color Assessment and Plan - Assessment and Plan (Free Text) Assessment: 32 yo male with no PMH admitted for right upper medial thigh cellulitis. Surgery was consulted for I&D. POD 3 s/p I&D. Wound culture shows MRSA. Patient was on IV Vanc/Zosyn D/C but restarted IV Vanco on 09/20/18 after wound culture showing MRSA. Plan: Cellulitis Surgery Consulted- Dr. Thompson- POD 3 s/p I&D. Wound culture shows MRSA sensitive to vancomycin and clindamycin. CT Lower extremity- Findings consistent w/ a cellulitis involving the subcutaneous tissues/fat proximal 1/2 medial aspect right thigh with what could represent a small amount of interstitial fluid but no abscess collections identified Afebrile; Leukocytosis trending downwards Vancomycin 1gm IVPB q 12 freda; Vanc trough 6.8; Vanc trough ordered at 1:45am 09/22/18 Ibuprofen 600mg PO q4h PRN Patient is uncomfortable changing wound dressing at home alone. As per surgery, patient requires daily dressing changes because of noted drainage daily during dressing change. PPx GI ppx: Florastor 250mg po bid DVT ppx: Patient is ambulatory for DVT ppx Levar Maxwell PGY-1 Medical Management d/w with Dr. Gutierrez <Doc Gutierrez - Last Filed: 09/21/18 17:12> Objective - Vital Signs/Intake and Output Vital Signs (last 24 hours): Temp Pulse Resp BP Pulse Ox 97.8 F 81 20 131/66 99 09/21/18 15:00 09/21/18 15:00 09/21/18 15:00 09/21/18 15:00 09/21/18 15:00 - Medications Medications: Current Medications Vancomycin/Sodium Chloride (Vancomycin 1 Gm/Ns 200 Ml) 1 gm in 200 mls @ 133 mls/hr IVPB Q12H [facility]; Protocol Stop: 09/25/18 13:01 Last Admin: 09/21/18 16:13 Dose: 133 mls/hr Ibuprofen (Motrin Tab) 600 mg PO Q4H PRN PRN Reason: Pain, Mild (1-3) Last Admin: 09/21/18 10:29 Dose: 600 mg Saccharomyces Boulardii (Florastor) 250 mg PO BID FREDA Last Admin: 09/21/18 10:30 Dose: 250 mg - Labs Labs: 09/21/18 06:51 09/21/18 06:51 Attending/Attestation - Attestation I have personally seen and examined this patient.: Yes I have fully participated in the care of the patient.: Yes I have reviewed all pertinent clinical information, including history, physical exam and plan: Yes Notes (Text): 09/21/18 17:03 Medical attending: Patient was seen and examined by me. Agree with the above note by the resident The patient was not in any acute distress, surgery has added back on IV vancomycin at this time after the wound culture showed + growth We continue to monitor his blood work as well as his vital signs. Doc Gutierrez
--- NOTE | 2018-09-21 15:00 | CP.PCM.PN ---
Subjective - Date & Time of Evaluation Date of Evaluation: 09/21/18 Time of Evaluation: 11:00 - Subjective Subjective: Surgery: Dr. Thompson Pt seen and examined. No acute events overnight. States he feels better and pain is well controlled. Tolerating diet and ambulating. Denies fevers/chills. No other complaints at this time. Objective - Vital Signs/Intake and Output Vital Signs (last 24 hours): Temp Pulse Resp BP Pulse Ox 97.7 F 72 20 111/70 98 09/21/18 07:00 09/21/18 07:00 09/21/18 07:00 09/21/18 07:00 09/21/18 07:00 - Medications Medications: Current Medications Vancomycin/Sodium Chloride (Vancomycin 1 Gm/Ns 200 Ml) 1 gm in 200 mls @ 133 mls/hr IVPB Q12H [facility]; Protocol Stop: 09/25/18 13:01 Last Admin: 09/21/18 00:30 Dose: 133 mls/hr Ibuprofen (Motrin Tab) 600 mg PO Q4H PRN PRN Reason: Pain, Mild (1-3) Last Admin: 09/21/18 10:29 Dose: 600 mg Saccharomyces Boulardii (Florastor) 250 mg PO BID DARRELL Last Admin: 09/21/18 10:30 Dose: 250 mg - Labs Labs: 09/21/18 06:51 09/21/18 06:51 - Constitutional Appears: Well, No Acute Distress - Head Exam Head Exam: ATRAUMATIC, NORMOCEPHALIC - ENT Exam ENT Exam: Mucous Membranes Moist - Respiratory Exam Respiratory Exam: NORMAL BREATHING PATTERN - Cardiovascular Exam Cardiovascular Exam: RRR - GI/Abdominal Exam GI & Abdominal Exam: Soft - Extremities Exam Additional comments: R inner thigh with abscess s/p I&D, thick purulent discharge expressed from wound, erythema much improved Assessment and Plan - Assessment and Plan (Free Text) Assessment: 32M s/p I&D of R medial thigh abscess Plan: - cont daily packing changes - cont ABX - d/w Dr. Jay Coronado
[2018-09-22] MEDS: Vancomycin 1 gm/NS 200 ml 1 GM/200 ML BAG IVPB SCH (02:13)
[2018-09-22 07:59] LABS: BASO % 0.6 % (0.0-2.0); EOS # 0.3 K/uL (0.0-0.7); EOS % 3.8 % (0.0-4.0); HEMOGLOBIN 14.3 g/dL (12.0-18.0); LYMPH # 1.7 K/uL (1.0-4.3); LYMPH % 25.7 % (20.0-40.0); MEAN CELL VOLUME 90.1 fL (80.0-94.0); MEAN CORPUSCULAR HEMOGLOBIN 30.7 pg (27.0-31.0); MEAN CORPUSCULAR HGB CONC 34.1 g/dL (33.0-37.0); MEAN PLATELET VOLUME 8.6 fL (7.2-11.7); MONO # 0.6 K/uL (0.0-0.8); MONO % 9.4 % (0.0-10.0); NEUT % 60.5 % (50.0-75.0); RBC 4.65 Mil/uL (4.40-5.90); RED CELL DISTRIBUTION WIDTH 12.4 % (11.5-14.5); WHITE BLOOD COUNT 6.6 K/uL (4.8-10.8)
[2018-09-22 08:37] LABS: ALB/GLOB RATIO 1.3 (1.0-2.1); ALT/SGPT 25 U/L (21-72); AST/SGOT 19 U/L (17-59); BLOOD UREA NITROGEN 13 mg/dL (9-20); GFR NON-AFRICAN AMERICAN > 60
[2018-09-22 08:58] VITALS: BP 110/66; PULSE 87; TEMP 98; O2SAT 98
--- NOTE | 2018-09-22 10:02 | CP.PCM.PN ---
Subjective - Date & Time of Evaluation Date of Evaluation: 09/22/18 Time of Evaluation: 09:56 - Subjective Subjective: Surgery: Dr. Thompson Pt seen and examined. No acute overnight events. States he feels well and denies any pain at this time. He is tolerating his diet and denies any complaints at this time. Denies fevers/chills. Objective - Vital Signs/Intake and Output Vital Signs (last 24 hours): Temp Pulse Resp BP Pulse Ox 98.0 F 87 20 110/66 98 09/22/18 07:22 09/22/18 07:22 09/22/18 07:22 09/22/18 07:22 09/22/18 07:22 - Medications Medications: Current Medications Vancomycin/Sodium Chloride (Vancomycin 1 Gm/Ns 200 Ml) 1 gm in 200 mls @ 133 mls/hr IVPB Q12H [facility]; Protocol Stop: 09/25/18 13:01 Last Admin: 09/22/18 02:13 Dose: 133 mls/hr Ibuprofen (Motrin Tab) 600 mg PO Q4H PRN PRN Reason: Pain, Mild (1-3) Last Admin: 09/21/18 10:29 Dose: 600 mg Saccharomyces Boulardii (Florastor) 250 mg PO BID DARRELL Last Admin: 09/21/18 17:42 Dose: 250 mg - Labs Labs: 09/22/18 07:51 09/22/18 07:51 - Constitutional Appears: Well, No Acute Distress - Head Exam Head Exam: ATRAUMATIC, NORMOCEPHALIC - Eye Exam Eye Exam: Normal appearance - ENT Exam ENT Exam: Mucous Membranes Moist - Respiratory Exam Respiratory Exam: NORMAL BREATHING PATTERN - Cardiovascular Exam Cardiovascular Exam: RRR - GI/Abdominal Exam GI & Abdominal Exam: Soft. absent: Tenderness - Extremities Exam Additional comments: R medial thigh with abscess cavity s/p I&D, wound bed clean. No more purulent drainage noted - Neurological Exam Neurological Exam: Alert, Awake, Oriented x3 - Skin Skin Exam: Dry, Warm Assessment and Plan - Assessment and Plan (Free Text) Assessment: 32M with Right medial thigh abscess s/p bedside I&D; POD#4 Plan: - pt clear for DC from surgical standpoint - can remove packing in 2 days at home - PO abx upon DC for 7 days - d/w Dr. Jay Coronado
[2018-09-22] MEDS: Saccharomyces Boulardi 250 mg Cap PO SCH (10:41)
--- NOTE | 2018-09-22 15:55 | CP.PCM.DIS ---
<Levar Maxwell - Last Filed: 09/22/18 16:11> Provider - Provider Date of Admission: 09/16/18 16:55 Attending physician: Doc Gutierrez DO Consults: 09/18/18 13:27 General Surgery Consult Routine Comment: Consulting Provider: Karen Thompson Consulting Physician: Karen Thompson Reason for Consult: Evaluation for need for I&D for R Groin cellulitis Time Spent in preparation of Discharge (in minutes): 45 Hospital Course - Lab Results Lab Results: Micro Results 09/16/18 13:40 Blood Blood Culture - Final NO GROWTH AFTER 5 DAYS 09/16/18 13:40 Blood Gram Stain - Final TEST NOT PERFORMED 09/16/18 13:40 Blood Blood Culture - Final NO GROWTH AFTER 5 DAYS 09/16/18 13:40 Blood Gram Stain - Final TEST NOT PERFORMED 09/18/18 08:42 Thigh - Right Gram Stain - Final 09/18/18 08:42 Thigh - Right Wound Culture - Final Methicillin Resistant S Aureus Most Recent Lab Values WBC 6.6 K/uL (4.8-10.8) 09/22/18 07:51 RBC 4.65 Mil/uL (4.40-5.90) 09/22/18 07:51 Hgb 14.3 g/dL (12.0-18.0) 09/22/18 07:51 Hct 41.9 % (35.0-51.0) 09/22/18 07:51 MCV 90.1 fL (80.0-94.0) 09/22/18 07:51 MCH 30.7 pg (27.0-31.0) 09/22/18 07:51 MCHC 34.1 g/dL (33.0-37.0) 09/22/18 07:51 RDW 12.4 % (11.5-14.5) 09/22/18 07:51 Plt Count 347 K/uL (130-400) 09/22/18 07:51 MPV 8.6 fL (7.2-11.7) 09/22/18 07:51 Neut % (Auto) 60.5 % (50.0-75.0) 09/22/18 07:51 Lymph % (Auto) 25.7 % (20.0-40.0) 09/22/18 07:51 Carbon % (Auto) 9.4 % (0.0-10.0) 09/22/18 07:51 Eos % (Auto) 3.8 % (0.0-4.0) 09/22/18 07:51 Baso % (Auto) 0.6 % (0.0-2.0) 09/22/18 07:51 Neut # (Auto) 4.0 K/uL (1.8-7.0) 09/22/18 07:51 Lymph # (Auto) 1.7 K/uL (1.0-4.3) 09/22/18 07:51 Carbon # (Auto) 0.6 K/uL (0.0-0.8) 09/22/18 07:51 Eos # (Auto) 0.3 K/uL (0.0-0.7) 09/22/18 07:51 Baso # (Auto) 0.0 K/uL (0.0-0.2) 09/22/18 07:51 Sodium 139 mmol/L (132-148) 09/22/18 07:51 Potassium 4.2 mmol/L (3.6-5.2) 09/22/18 07:51 Chloride 102 mmol/L (98-107) 09/22/18 07:51 Carbon Dioxide 29 mmol/L (22-30) 09/22/18 07:51 Anion Gap 12 (10-20) 09/22/18 07:51 BUN 13 mg/dL (9-20) 09/22/18 07:51 Creatinine 0.7 mg/dL (0.8-1.5) L 09/22/18 07:51 Est GFR ( Amer) > 60 09/22/18 07:51 Est GFR (Non-Af Amer) > 60 09/22/18 07:51 POC Glucose (mg/dL) 91 mg/dL (65-110) 09/17/18 11:24 Random Glucose 92 mg/dL (75-110) 09/22/18 07:51 Hemoglobin A1c 4.8 % (4.2-6.5) 09/17/18 07:09 Calcium 9.0 mg/dl (8.6-10.4) 09/22/18 07:51 Phosphorus 3.0 mg/dL (2.5-4.5) 09/22/18 07:51 Magnesium 2.1 mg/dL (1.6-2.3) 09/22/18 07:51 Total Bilirubin 0.2 mg/dL (0.2-1.3) 09/22/18 07:51 AST 19 U/L (17-59) 09/22/18 07:51 ALT 25 U/L (21-72) 09/22/18 07:51 Alkaline Phosphatase 82 U/L (38-126) 09/22/18 07:51 Total Protein 7.0 g/dL (6.3-8.3) 09/22/18 07:51 Albumin 4.0 g/dL (3.5-5.0) 09/22/18 07:51 Globulin 3.1 gm/dL (2.2-3.9) 09/22/18 07:51 Albumin/Globulin Ratio 1.3 (1.0-2.1) 09/22/18 07:51 Vancomycin Trough 7.9 ug/mL (5.0-10.0) 09/22/18 00:58 - Hospital Course Hospital Course: Upon admission Mr. Longo is a 32 y.o male with no significant past medical history presents to emergency department for evaluation of pain on his right upper medial thigh. Patient states that 4 days ago he noted a cyst at that site. He attempted to pop the cyst but then "it went crazy". Patient admits to subjective fevers. Patient states the pain is located on the upper right medial thigh extends downward, rates as a 10/10 constant pain, and described as burning and sharp. Patient states that he took no medications for the pain at home. Patient denies previous episodes of this in the past. Patient admits to fevers. Patient denies chills, chest pain, shortness of breath, n/v, constipation or diarrhea, weakness, dysuria, and discharge/oozing/pus. Hospital Course Patient was admitted to hospital for right upper medial thigh redness and swelling. Patient denies any fever, dizziness, chest pain, palpitation, shortness of breath, n/v, diarrhea, constipation, abdominal pain or dyusria.Lower extremity CT was done, which showed cellulitis for which he was given Zosyn and Vancomycin. Surgery was consulted and I&D was performed at bedside with improvement. Wound culture came out sensitive to vancomycin and clindamycin. Surgery signed off the patient after improvement from antibiotics and wound dressing changes. Patient was discharged with instructions to take clindamycin for 7 days, Motren for pain and can remove packing in 2 days at home. Discharge Plan 1. Patient is stable for discharge as per Dr. Gutierrez and surgical team. 2. Patient is to followup with primary medical doctor within 7 days of discharge from hospital. 3. Patient was given gauze 4x4 and kerlix and Clindamycin 300mg to be taken over the next 10 days. 4. Patient is educated to return to hospital if symptoms worsen or recur. 5. Patient understands the plan as above and agrees. Disclaimer: Written above is a synopsis of patient's current hospital admission. Discharge Exam - Head Exam Head Exam: ATRAUMATIC, NORMOCEPHALIC - Eye Exam Eye Exam: EOMI, Normal appearance, PERRL Pupil Exam: NORMAL ACCOMODATION, PERRL - Respiratory Exam Respiratory Exam: NORMAL BREATHING PATTERN, UNREMARKABLE. absent: Accessory Muscle Use, Rales, Rhonchi, Wheezes - Cardiovascular Exam Cardiovascular Exam: REGULAR RHYTHM, +S1, +S2. absent: JVD - GI/Abdominal Exam GI & Abdominal Exam: Normal Bowel Sounds, Unremarkable. absent: Rebound, Tenderness - Extremities Exam Extremities exam: normal inspection Additional comments: dressing in right upper medial thigh - Neurological Exam Neurological exam: Alert, Oriented x3 - Psychiatric Exam Psychiatric exam: Normal Affect, Normal Mood - Skin Skin Exam: Intact, Normal Color Discharge Plan - Discharge Medications Prescriptions: RX: Clindamycin [Cleocin] 300 mg PO TID #30 cap - Follow Up Plan Condition: SERIOUS Disposition: HOME/ ROUTINE Instructions: Clindamycin (Systemic), Cellulitis (Skin Infection), Adult (DC), Cellulitis (DC), Cellulitis (GEN) Additional Instructions: 1. Patient is stable for discharge as per Dr. Gutierrez and surgical team. 2. Patient is to followup with primary medical doctor within 7 days of discharge from hospital. 3. Patient was given gauze 4x4 and kerlix and Clindamycin 300mg to be taken over the next 10 days. 4. Patient is educated to return to hospital if symptoms worsen or recur. 5. Patient understands the plan as above and agrees. Referrals: Karen Thompson MD [Staff Provider] - <Doc Gutierrez - Last Filed: 09/22/18 19:09> Provider - Provider Date of Admission: 09/16/18 16:55 Attending physician: Doc Gutierrez DO Consults: 09/18/18 13:27 General Surgery Consult Routine Comment: Consulting Provider: Karen Thompson Consulting Physician: Karen Thompson Reason for Consult: Evaluation for need for I&D for R Groin cellulitis Hospital Course - Lab Results Lab Results: Micro Results 09/16/18 13:40 Blood Blood Culture - Final NO GROWTH AFTER 5 DAYS 09/16/18 13:40 Blood Gram Stain - Final TEST NOT PERFORMED 09/16/18 13:40 Blood Blood Culture - Final NO GROWTH AFTER 5 DAYS 09/16/18 13:40 Blood Gram Stain - Final TEST NOT PERFORMED 09/18/18 08:42 Thigh - Right Gram Stain - Final 09/18/18 08:42 Thigh - Right Wound Culture - Final Methicillin Resistant S Aureus Most Recent Lab Values WBC 6.6 K/uL (4.8-10.8) 09/22/18 07:51 RBC 4.65 Mil/uL (4.40-5.90) 09/22/18 07:51 Hgb 14.3 g/dL (12.0-18.0) 09/22/18 07:51 Hct 41.9 % (35.0-51.0) 09/22/18 07:51 MCV 90.1 fL (80.0-94.0) 09/22/18 07:51 MCH 30.7 pg (27.0-31.0) 09/22/18 07:51 MCHC 34.1 g/dL (33.0-37.0) 09/22/18 07:51 RDW 12.4 % (11.5-14.5) 09/22/18 07:51 Plt Count 347 K/uL (130-400) 09/22/18 07:51 MPV 8.6 fL (7.2-11.7) 09/22/18 07:51 Neut % (Auto) 60.5 % (50.0-75.0) 09/22/18 07:51 Lymph % (Auto) 25.7 % (20.0-40.0) 09/22/18 07:51 Carbon % (Auto) 9.4 % (0.0-10.0) 09/22/18 07:51 Eos % (Auto) 3.8 % (0.0-4.0) 09/22/18 07:51 Baso % (Auto) 0.6 % (0.0-2.0) 09/22/18 07:51 Neut # (Auto) 4.0 K/uL (1.8-7.0) 09/22/18 07:51 Lymph # (Auto) 1.7 K/uL (1.0-4.3) 09/22/18 07:51 Carbon # (Auto) 0.6 K/uL (0.0-0.8) 09/22/18 07:51 Eos # (Auto) 0.3 K/uL (0.0-0.7) 09/22/18 07:51 Baso # (Auto) 0.0 K/uL (0.0-0.2) 09/22/18 07:51 Sodium 139 mmol/L (132-148) 09/22/18 07:51 Potassium 4.2 mmol/L (3.6-5.2) 09/22/18 07:51 Chloride 102 mmol/L (98-107) 09/22/18 07:51 Carbon Dioxide 29 mmol/L (22-30) 09/22/18 07:51 Anion Gap 12 (10-20) 09/22/18 07:51 BUN 13 mg/dL (9-20) 09/22/18 07:51 Creatinine 0.7 mg/dL (0.8-1.5) L 09/22/18 07:51 Est GFR ( Amer) > 60 09/22/18 07:51 Est GFR (Non-Af Amer) > 60 09/22/18 07:51 POC Glucose (mg/dL) 91 mg/dL (65-110) 09/17/18 11:24 Random Glucose 92 mg/dL (75-110) 09/22/18 07:51 Hemoglobin A1c 4.8 % (4.2-6.5) 09/17/18 07:09 Calcium 9.0 mg/dl (8.6-10.4) 09/22/18 07:51 Phosphorus 3.0 mg/dL (2.5-4.5) 09/22/18 07:51 Magnesium 2.1 mg/dL (1.6-2.3) 09/22/18 07:51 Total Bilirubin 0.2 mg/dL (0.2-1.3) 09/22/18 07:51 AST 19 U/L (17-59) 09/22/18 07:51 ALT 25 U/L (21-72) 09/22/18 07:51 Alkaline Phosphatase 82 U/L (38-126) 09/22/18 07:51 Total Protein 7.0 g/dL (6.3-8.3) 09/22/18 07:51 Albumin 4.0 g/dL (3.5-5.0) 09/22/18 07:51 Globulin 3.1 gm/dL (2.2-3.9) 09/22/18 07:51 Albumin/Globulin Ratio 1.3 (1.0-2.1) 09/22/18 07:51 Vancomycin Trough 7.9 ug/mL (5.0-10.0) 09/22/18 00:58 Attending/Attestation - Attestation I have personally seen and examined this patient.: Yes I have fully participated in the care of the patient.: Yes I have reviewed all pertinent clinical information, including history, physical exam and plan: Yes Notes (Text): 09/22/18 19:04 Medical attending: Patient was seen and examined by me. Agree with the above note by the resident The patient was not in acute distress when we saw, he has been walking and the skin in the inner thigh today is less erythema and less tenderness. The patient also will need to be on PO abx clindamycin and I asked him to take extra yogurt with this as well. Also supplies to go home with - kerlix wraps, 4 x 4s, and also saline thank you Doc Gutierrez
== END 2018-09-22 16:30 | disposition home or self-care (01) | DRG 364 ==
LOC: C.ER 12:53 → C.9E 16:55 → C.6T 19:25
PROVIDERS: ADMIT Hospitalist; ATTEND Hospitalist
PROC: 0J9N0ZZ Drainage of Right Lower Leg Subcutaneous Tissue and Fascia, Open Approach (ICD-10-PCS; principal; 2018-09-21)
DX: L03.115 Cellulitis of right lower limb (principal); L02.214 Cutaneous abscess of groin; L02.415 Cutaneous abscess of right lower limb; F17.210 Nicotine dependence, cigarettes, uncomplicated

== ENCOUNTER 2018-11-22 14:39 | Inpatient (IN) | payer MEDICAID, OTHER ==
--- NOTE | 2018-11-22 15:00 | C.PDOC ---
History Of Present Illness 32 y/o male pt with hx of HIV, suicide attempt and methamphetamine use sent to the ER from a clinic c/o suicide ideation. Pt notes he has been feeling down for a couple of days. Pt is currently on Truvada and is compliant with the me dication. Pt was planning on slicing open his own wrist today, went to the clinic and was sent to [facility] ER for further evaluation. Pt denies ingestion or overdosing on medication, trauma, falls, chest pain, fever or any other complaint. Time Seen by Provider: 11/22/18 14:42 Chief Complaint (Nursing): Psychiatric Evaluation History Per: Patient History/Exam Limitations: no limitations Onset/Duration Of Symptoms: Days Current Symptoms Are (Timing): Still Present Past Medical History Reviewed: Historical Data, Nursing Documentation, Vital Signs - Medical History PMH: Anxiety, Depression - [facility] DRAINAGE OF R LOW LEG SUBCU/FASCIA, OPEN APPROACH (09/16/18) Family History: States: Unknown Family Hx - Social History Hx Alcohol Use: Yes Hx Substance Use: Yes (Crystal Meth) - Immunization History Hx Tetanus Toxoid Vaccination: No Hx Influenza Vaccination: No Hx Pneumococcal Vaccination: No Review Of Systems Constitutional: Negative for: Fever, Other (ingestion and overdosing on medication; trauma or falls ) Psych: Positive for: Suicidal ideation. Negative for: Other (Homicidal ideation ) Physical Exam - Physical Exam Appears: Non-toxic, No Acute Distress Skin: Warm, Dry Head: Normacephalic Eye(s): bilateral: Normal Inspection, PERRL, EOMI Oral Mucosa: Moist Neck: Supple, Other (No meningeal signs- negative kernig's and brudzinskis) Chest: Symmetrical Cardiovascular: Rhythm Regular, No Friction Rub Respiratory: No Rales, No Rhonchi, No Wheezing Gastrointestinal/Abdominal: Soft, No Tenderness, No Distention Extremity: Bilateral: Normal Color And Temperature Pulses: Left Dorsalis Pedis: Normal, Right Dorsalis Pedis: Normal Neurological/Psych: Oriented x3 Gait: Steady ED Course And Treatment - Laboratory Results Result Diagrams: 11/22/18 15:15 11/22/18 15:15 ECG: Interpreted By Me, Viewed By Me ECG Rhythm: Sinus Rhythm ECG Interpretation: Normal Interpretation Of ECG: normal sinus; no STEMI Rate From EC Medical Decision Making Medical Decision Making: Impression: SI/depression contacted crisis for further evaluation Plans: -- chem lab -- blood work -- UA 1627 labs largely unremarkable Medically clear pending Crisis [address] riddle for MDD. Pt in NAD Disposition - Disposition Disposition Time: 17:28 Condition: GOOD Forms: [facility] (Polish) - Clinical Impression Clinical Impression: Depression - Scribe Statement The provider has reviewed the documentation as recorded by the Scribe Orellana Do Provider Attestation: All medical record entries made by the Scribe were at my direction and personally dictated by me. I have reviewed the chart and agree that the record accurately reflects my personal performance of the history, physical exam, medical decision making, and the department course for this patient. I have also personally directed, reviewed, and agree with the discharge instructions and disposition.
[2018-11-22 15:10] VITALS: BMI 19.0
[2018-11-22 15:23] LABS: BASO % 0.9 % (0.0-2.0); EOS # 0.1 K/uL (0.0-0.7); EOS % 1.9 % (0.0-4.0); HEMOGLOBIN 14.6 g/dL (12.0-18.0); LYMPH # 1.8 K/uL (1.0-4.3); LYMPH % 36.5 % (20.0-40.0); MEAN CELL VOLUME 90.6 fL (80.0-94.0); MEAN CORPUSCULAR HEMOGLOBIN 29.6 pg (27.0-31.0); MEAN CORPUSCULAR HGB CONC 32.7 g/dL (33.0-37.0); MEAN PLATELET VOLUME 9.7 fL (7.2-11.7); MONO # 0.4 K/uL (0.0-0.8); MONO % 8.4 % (0.0-10.0); NEUT # 2.6 K/uL (1.8-7.0); NEUT % 52.3 % (50.0-75.0); RBC 4.94 Mil/uL (4.40-5.90); RED CELL DISTRIBUTION WIDTH 13.6 % (11.5-14.5)
[2018-11-22 15:39] LABS: SQUAMOUS EPITHIAL < 1 /hpf (0-5); URINE BILIRUBIN NEGATIVE (NEGATIVE); URINE BLOOD NEGATIVE (NEGATIVE); URINE CLARITY Clear (Clear); URINE COLOR Yellow (YELLOW); URINE GLUCOSE (UA) NORMAL (Normal); URINE LEUKOCYTE ESTERASE NEG Leu/uL (Negative); URINE PROTEIN NEGATIVE (NEGATIVE); URINE UROBILINOGEN NORMAL mg/dL (0.2-1.0)
[2018-11-22 15:51] LABS: ALB/GLOB RATIO 1.7 (1.0-2.1); ALBUMIN 4.9 g/dL (3.5-5.0); ALT/SGPT 33 U/L (21-72); AST/SGOT 43 U/L (17-59); BLOOD UREA NITROGEN 14 mg/dL (9-20); CALCIUM 9.3 mg/dl (8.6-10.4); GFR NON-AFRICAN AMERICAN > 60
[2018-11-22 15:52] LABS: ACETAMINOPHEN < 10.0 ug/mL (10.0-30.0); SALICYLATE < 1.0 mg/dL 1
[2018-11-22 16:09] LABS: BARBITURATES, UR NEGATIVE (NEGATIVE); BENZODIAZEPINES, UR NEGATIVE (NEGATIVE); OPIATES, UR NEGATIVE (NEGATIVE); PHENCYCLIDINE, UR NEGATIVE (NEGATIVE)
--- NOTE | 2018-11-22 18:25 | PCM.BM ---
<Krystle Hidalgo - Last Filed: 11/22/18 18:22> Treatment Plan Problems - Problems identified on initial assessmt ANXIETY/ FEAR Date Initiated: 11/22/18 Time Initiated: 05:45 Date resolved: 11/22/18 Assessment reference: NA Status: Active Thought alteration/inefective coping Date Initiated: 11/22/18 Time Initiated: 05:45 Assessment reference: NA Status: Active Treatment assets and liabiliti Patient Assests: self-reliant, negotiates basic needs, good interpersonal skills Patient Liabilities: substance abuse - Milieu Protocol Maintain good personal hygiene: daily Encourage regular showers, daily Remind patient to perform daily oral care, daily Assist patient to perform ADL's Maintain personal safety: every shift Educate patient to report safety concerns to staff, every shift Monitor environment for contraband/sharps Medication safety: Monitor for expected outcome, potential side effects: every shift, Assess barriers to learning: every shift, Assess readiness for medication education: every shift <Landen Ramirez - Last Filed: 11/23/18 11:34> - Diagnosis (1) Depression Status: Acute Interventions: 11/23/18 11:34 * Assess/adjust medications daily and /or as needed * See patient on an individual basis 7x/week to assess symptoms of depression * Monitor for side effects & effectiveness of medications * <Dianne Canales - Last Filed: 11/23/18 12:29> Family Contact Family involvement: Famliy/SO not involved - Goals for Treatment Patient goals for treatment: "I need housing." Discharge/Continuing Care - Education Needs Education Needs: Patient Medication, Patient Coping Skills, Patient Placement options, Patient Community resources - Discharge Discharge Criteria: Tolerates medication w/o severe side effects, Reduction of target symptoms Discharge to:: Skilled Nursing - Treatment Team Participation Discussed with Family/SO: No Was Patient/Family/SO present at Treatment Team Meeting: Yes
[2018-11-22] MEDS: Emtricitabine-Tenofovir 200 mg-300 mg Tab PO SCH (21:01)
[2018-11-23] MEDS: Emtricitabine-Tenofovir 200 mg-300 mg Tab PO SCH (09:53)
[2018-11-23] MEDS ORDERED: Pneumococcal 23-Valent Vaccine IM ONE (10:00)
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
[2018-11-23] MEDS: Influenza Vaccine 60 mcg/0.5 mL SYR (4YR UP) IM ONE ×2 (13:36→13:48)
--- NOTE | 2018-11-23 14:19 | CARD ---
APPROVED REPORT Date of service: 11/22/2018 EKG Measurement Heart [id number] <Conclusion> Normal sinus rhythm Voltage criteria for left ventricular hypertrophy Abnormal ECG
[2018-11-24] MEDS: Emtricitabine-Tenofovir 200 mg-300 mg Tab PO SCH (17:26)
--- NOTE | 2018-11-24 23:01 | PCM.PYCHPN ---
Psychiatric Progress Note - Psychiatric Progress Note Patient seen today, length of contact: 15 min Patient Chief Complaint: I was feeling depressed and suicidal Problems Identified/Issues Discussed: Patient was seen and evaluated, chart reviewed and discussed the staff. Patient reports depressed mood but reports some some improvement in the feelings of hopelessness and helplessness. He also reports irritability and agitation. He still reports poor sleep. However he denies any AVH. He is taking medication and denies any side effects. Symptoms are improving gradually but he needs to stay longer for further stabilization. Supportive therapy was given Medication Change: Yes Medical Record Reviewed: Yes Mental Status Examination - Cognitive Function Orientation: Person, Place, Situation, Time Memory: Intact Attention: WNL Concentration: Poor Association: WNL Fund of Knowledge: Poor - Mood Mood: Depressed, Anxious - Affect Affect: Constricted, Depressed - Speech Speech: Soft - Formal Thought Process Formal Thought Process: No Impairment - Suicidal Ideation Suicidal Ideation: No - Homicidal Ideation Homicidal Ideation: No Goal/Treatment Plan - Goal/Treatment Plan Need for Continued Stay: Remain at risks for inpatient hospitalization, Severe depression anxiety Progress Toward Problem(s) and Goals/Treatment Plan: Bipolar disorder depressed severe with psychotic features CBT Psychoeducation Supportive therapy and group therapy Trazodone for insomnia Hydroxyzine for anxiety Neurontin augmentation Paxil for depression - Smoking Cessation Smoking Cessation Initiated: No
[2018-11-25] MEDS: Emtricitabine-Tenofovir 200 mg-300 mg Tab PO SCH (09:34)
--- NOTE | 2018-11-25 15:22 | CP.PCM.CON ---
<Shae Modi - Last Filed: 11/25/18 18:11> History of Present Illness - History of Present Illness History of Present Illness: PGY-1 Shae Modi D.O. Medicine consult note for Dr. Ceballos's service: Patient is a 32 yo homeless male with a history of syphilis, gonorrhea, and polysubstance abuse who is presently admitted to the psychiatric unit for suicidal ideation. Hospitalists were consulted because RPR and FTA-ABS are positive for syphilis. He is taking Truvada for HIV prophylaxis and says he has to be tested for STIs every 3 months. He recently established at [facility]'s clinic on 11/16/18 to receive Truvada, which is when he got blood work showing positive RPR and FTA-ABS. Patient reports that he was treated with "injections" for syphilis about 8 months ago in [place], [place]. He states he is sexually active with multiple male partners. He participates in oral and anal sex. He only uses condoms sometimes. He says all of his partners say they do not have STIs. 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), alc- vodka "as much as I can get" but states last drink 3 weeks ago, tobacco- 1 cigarette/week, cocaine, meth, denies IVDA PMD: [facility] Review of Systems - Constitutional Constitutional: absent: Chills, Fever, Frequent Falls, Headache - EENT Eyes: absent: Blurred Vision, Change in Vision, Diplopia Ears: absent: Decreased Hearing, Tinnitus Nose/Mouth/Throat: absent: Nasal Congestion - Cardiovascular Cardiovascular: absent: Chest Pain, Dyspnea, Leg Edema, Palpitations - Respiratory Respiratory: absent: Cough, Dyspnea - Gastrointestinal Gastrointestinal: absent: Abdominal Pain, Bloating, Change in Bowel Habits, Constipation, Diarrhea, Nausea, Vomiting - Genitourinary Genitourinary: absent: Difficulty Urinating, Dysuria, Pyuria - Reproductive: Male Reproductive:Male: As Per HPI - Musculoskeletal Musculoskeletal: absent: Arthralgias, Numbness, Tingling - Integumentary Integumentary: absent: Lesions, Rash - Neurological Neurological: absent: Abnormal Gait, Abnormal Hearing, Dizziness, Loss of Vision, Paresthesias, Sensory Deficit - Psychiatric Psychiatric: Anxiety, Depression, Suicidal Ideation. absent: Hallucinations - Endocrine Endocrine: absent: Palpitations - Hematologic/Lymphatic Hematologic: absent: Easy Bleeding, Easy Bruising, Lymphadenopathy Past Patient History - Infectious Disease Hx of Infectious Diseases: None - Tetanus Immunizations Tetanus Immunization: Unknown - Past Medical History & Family History Past Medical History?: Yes Past Family History: Reviewed and not pertinent - Past Social History Smoking Status: Light Smoker < 10 Cigarettes Daily Chewing Tobacco Use: No Cigar Use: No Alcohol: > 2 Drinks/Day Drugs: Cannabis, Cocaine, Methamphetamine Home Situation {Lives}: Homeless - CARDIAC Hx Cardiac Disorders: Yes (Chest pain since he was a child.) Hx Hypertension: No - PULMONARY Hx Asthma: No Hx Bronchitis: No Hx Tuberculosis: No - NEUROLOGICAL HX Cerebrovascular Accident: No Hx Seizures: No - HEENT Hx HEENT Problems: No - RENAL Hx Chronic Kidney Disease: No Hx Kidney Stones: No - ENDOCRINE/METABOLIC Hx Endocrine Disorders: No - HEMATOLOGICAL/ONCOLOGICAL Hx Cancer: No Hx Human Immunodeficiency Virus (HIV): No - INTEGUMENTARY Other/Comment: Cellulitis on right upper groin - MUSCULOSKELETAL/RHEUMATOLOGICAL Hx Musculoskeletal Disorders: No Hx Falls: No - GASTROINTESTINAL Hx Gastrointestinal Disorders: No - GENITOURINARY/GYNECOLOGICAL Hx Sexually Transmitted Disorders: No - PSYCHIATRIC Hx Substance Use: Yes (Alcohol, Methadone, Marijuana) - SURGICAL HISTORY Hx Surgeries: No - ANESTHESIA Hx Anesthesia: No Hx Anesthesia Reactions: No Hx Malignant Hyperthermia: No Meds Allergies/Adverse Reactions: Allergies Allergy/AdvReac Type Severity Reaction Status Date / Time No Known Allergies Allergy Verified 11/22/18 14:54 - Medications Medications: Current Medications Emtricitabine/Tenofovir (Truvada 200 Mg-300 Mg) 1 tab PO DAILY [facility]; Protocol Stop: 11/30/18 10:01 Last Admin: 11/25/18 09:34 Dose: 1 tab Gabapentin (Neurontin) 100 mg PO TID [facility] Last Admin: 11/25/18 13:30 Dose: 100 mg Hydroxyzine HCl (Atarax) 25 mg PO Q6H PRN PRN Reason: Anxiety Last Admin: 11/24/18 23:41 Dose: 25 mg Paroxetine HCl (Paxil) 10 mg PO DAILY [facility] Last Admin: 11/25/18 09:34 Dose: 10 mg Trazodone HCl (Desyrel) 100 mg PO HS [facility] Physical Exam - Constitutional Appears: Non-toxic, No Acute Distress - Head Exam Head Exam: ATRAUMATIC, NORMAL INSPECTION - Eye Exam Eye Exam: EOMI, Normal appearance, PERRL - ENT Exam ENT Exam: Mucous Membranes Moist - Neck Exam Neck exam: Positive for: Normal Inspection - Respiratory Exam Respiratory Exam: Clear to Auscultation Bilateral, NORMAL BREATHING PATTERN. absent: Accessory Muscle Use, Rales, Rhonchi, Wheezes, Respiratory Distress - Cardiovascular Exam Cardiovascular Exam: RRR, +S1, +S2 - GI/Abdominal Exam GI & Abdominal Exam: Soft. absent: Distended, Tenderness - Exam Exam: NORMAL INSPECTION. absent: Circumcision, Scrotal Swelling, Testicular Tenderness, Uretheral Discharge Additional comments: no chancre - Extremities Exam Extremities exam: Positive for: normal inspection. Negative for: pedal edema, tenderness - Back Exam Back exam: NORMAL INSPECTION. absent: rash noted - Neurological Exam Neurological exam: Alert, CN II-XII Intact, Normal Gait, Oriented x3 - Psychiatric Exam Psychiatric exam: Normal Affect, Normal Mood - Skin Skin Exam: Dry, Intact, Normal Color, Pallor, Warm Results - Vital Signs Recent Vital Signs: Last Vital Signs Temp 97.9 F 11/25/18 06:42 Pulse 69 11/25/18 06:42 Resp 18 11/25/18 06:42 BP 116/62 11/25/18 06:42 Pulse Ox 100 11/22/18 17:29 - Labs Result Diagrams: 11/22/18 15:15 11/22/18 15:15 - EKG Data EKG Interpreted by: Myself EKG shows normal: Sinus rhythm Rate: Normal - EKG Data When Compared to Previous EKG: No Significant Change Assessment & Plan (1) History of syphilis Status: Acute - Assessment and Plan (Free Text) Assessment: Patient is a 32 yo homeless male with a history of syphilis, gonorrhea, and polysubstance abuse who is presently admitted to the psychiatric unit for estevez icidal ideation. Hospitalists were consulted because RPR and FTA-ABS are positive for syphilis. Patient reports that he was treated with "injections" for syphilis about 8 months ago in [facility]. Patient signed records release form, but the facility said their system is down and to call back on Wednesday to obtain medical records. Patient denies any physical symptoms. Plan: RPR positive, FTA-ABS positive - Patient denies any symptoms, exam did not reveal any chancre, rash, or neuro abnormalities - Repeat STI testing- HIV, Hepatitis, RPR, HPV, G/C - Penicillin G IM 2,400,000 units x1 - Counseled on safe sex practices, including using protection and disclosing STIs to sexual partners - ID consulted (Freida)- rec one time dose of Penicillin G Polysubstance use disorder - Patient reports using cocaine and meth (intranasal, inhaled), denies IVDA - Cessation counseling - Further management as per psychiatry Mood disorder - Management as per psychiatry - Presently on Gabapentin 100 mg PO TID, Paxil 10 mg PO daily, Trazodone 100 mg PO QHS, Hydroxyzine 25 mg PO Q6H PRN PREP prophylaxis - Continue Truvada Code status: full code Case discussed with attending, Dr. Ceballos. <Kaitlyn Ceballos V - Last Filed: 11/25/18 23:43> Meds - Medications Medications: Current Medications Emtricitabine/Tenofovir (Truvada 200 Mg-300 Mg) 1 tab PO DAILY [facility]; Protocol Stop: 11/30/18 10:01 Last Admin: 11/25/18 09:34 Dose: 1 tab Gabapentin (Neurontin) 100 mg PO TID [facility] Last Admin: 11/25/18 17:06 Dose: 100 mg Hydroxyzine HCl (Atarax) 25 mg PO Q6H PRN PRN Reason: Anxiety Last Admin: 11/24/18 23:41 Dose: 25 mg Paroxetine HCl (Paxil) 10 mg PO DAILY [facility] Last Admin: 11/25/18 09:34 Dose: 10 mg Penicillin G Benzathine (Bicillin L-A Inj) 2,400,000 units IM ONCE ONE; Protocol Stop: 11/26/18 07:01 Trazodone HCl (Desyrel) 100 mg PO HS [facility] Last Admin: 11/25/18 21:45 Dose: 100 mg Results - Vital Signs Recent Vital Signs: Last Vital Signs Temp 97.9 F 11/25/18 06:42 Pulse 97 H 11/25/18 15:45 Resp 18 11/25/18 06:42 BP 134/76 11/25/18 15:45 Pulse Ox 100 11/22/18 17:29 - Labs Result Diagrams: 11/22/18 15:15 11/22/18 15:15 Labs: Laboratory Results - last 24 hr 11/25/18 11/25/18 11/25/18 19:48 19:48 19:48 RPR Titer 1:4 H RPR Reactive H Hepatitis A IgM Ab Negative Hep Bs Antigen Negative Hep B Core IgM Ab Negative Hepatitis C Antibody Negative HIV 1&2 Antibody Screen Negative Attending/Attestation - Attestation I have personally seen and examined this patient.: Yes I have fully participated in the care of the patient.: Yes I have reviewed all pertinent clinical information: Yes Notes (Text): Medicine is on consult 32 year old Male PMHx noted for prior treatment of syphilis and gonorhea, homosexual male, inconsistent contraception/high risk sexual behavior admitted to psychiatric unit for suicidal attempt. Patient admits to drug use and reports he was treated in [place] about 8 months ago. He has had recent blood work completed on 11/16/18 as outpatient noted positive RPR 1:16 and FTABS positive as well, Patient reports different sexual partners. patient refusing Pencillin G treatment given the associated pain from the last time he experienced the injection for treatment. Full body physical exam performed with presence of patient's male nurse at bedside; there is no rash, no lesion over the penis, no appreciable lymphadenopathy, no ulceration noted on oral pharygenal area. Patient is fairly light skinned advised to use skin screen to protect skin from potential skin cancers. Patient does not have any neurologic deficits, no visual impairment, patient is steady on his feet as we walked to his room from the kitchen area. Discussed case with resident and infectious disease. Patient recommended for treatment for Pencillin G X1 since he has no allergy to PCN. Patient tested for STDS again. Patient is on PreP therapy for HIV prophylaxis. Patient counselled in favor of safe sexual practices and advocate for contraception. Psychiatry to manage psychiatric issues while on .
--- NOTE | 2018-11-25 19:23 | CP.PCM.CON ---
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), alc- vodka "as much as I can get" but states last drink 3 weeks ago, tobacco- 1 cigarette/week, cocaine, meth, denies IVDA PMD: [facility] Review of Systems - Constitutional Constitutional: absent: Chills, Fever, Frequent Falls, Headache - EENT Eyes: absent: Blurred Vision, Change in Vision, Diplopia Ears: absent: Decreased Hearing, Tinnitus Nose/Mouth/Throat: absent: Nasal Congestion - Cardiovascular Cardiovascular: absent: Chest Pain, Dyspnea, Leg Edema, Palpitations - Respiratory Respiratory: absent: Cough, Dyspnea - Gastrointestinal Gastrointestinal: absent: Abdominal Pain, Bloating, Change in Bowel Habits, Constipation, Diarrhea, Nausea, Vomiting - Genitourinary Genitourinary: absent: Difficulty Urinating, Dysuria, Pyuria - Reproductive: Male Reproductive:Male: As Per HPI - Musculoskeletal Musculoskeletal: absent: Arthralgias, Numbness, Tingling - Integumentary Integumentary: absent: Lesions, Rash - Neurological Neurological: absent: Abnormal Gait, Abnormal Hearing, Dizziness, Loss of Vision, Paresthesias, Sensory Deficit - Psychiatric Psychiatric: Anxiety, Depression, Suicidal Ideation. absent: Hallucinations - Endocrine Endocrine: absent: Palpitations - Hematologic/Lymphatic Hematologic: absent: Easy Bleeding, Easy Bruising, Lymphadenopathy Past Patient History - Infectious Disease Hx of Infectious Diseases: None - Tetanus Immunizations Tetanus Immunization: Unknown - Past Medical History & Family History Past Medical History?: Yes Past Family History: Reviewed and not pertinent - Past Social History Smoking Status: Light Smoker < 10 Cigarettes Daily Chewing Tobacco Use: No Cigar Use: No Alcohol: > 2 Drinks/Day Drugs: Cannabis, Cocaine, Methamphetamine Home Situation {Lives}: Homeless - CARDIAC Hx Cardiac Disorders: Yes (Chest pain since he was a child.) Hx Hypertension: No - PULMONARY Hx Asthma: No Hx Bronchitis: No Hx Tuberculosis: No - NEUROLOGICAL HX Cerebrovascular Accident: No Hx Seizures: No - HEENT Hx HEENT Problems: No - RENAL Hx Chronic Kidney Disease: No Hx Kidney Stones: No - ENDOCRINE/METABOLIC Hx Endocrine Disorders: No - HEMATOLOGICAL/ONCOLOGICAL Hx Cancer: No Hx Human Immunodeficiency Virus (HIV): No - INTEGUMENTARY Other/Comment: Cellulitis on right upper groin - MUSCULOSKELETAL/RHEUMATOLOGICAL Hx Musculoskeletal Disorders: No Hx Falls: No - GASTROINTESTINAL Hx Gastrointestinal Disorders: No - GENITOURINARY/GYNECOLOGICAL Hx Sexually Transmitted Disorders: No - PSYCHIATRIC Hx Substance Use: Yes (Alcohol, Methadone, Marijuana) - SURGICAL HISTORY Hx Surgeries: No - ANESTHESIA Hx Anesthesia: No Hx Anesthesia Reactions: No Hx Malignant Hyperthermia: No Meds Allergies/Adverse Reactions: Allergies Allergy/AdvReac Type Severity Reaction Status Date / Time No Known Allergies Allergy Verified 11/22/18 14:54 - Medications Medications: Current Medications Emtricitabine/Tenofovir (Truvada 200 Mg-300 Mg) 1 tab PO DAILY [facility]; Protocol Stop: 11/30/18 10:01 Last Admin: 11/25/18 09:34 Dose: 1 tab Gabapentin (Neurontin) 100 mg PO TID [facility] Last Admin: 11/25/18 17:06 Dose: 100 mg Hydroxyzine HCl (Atarax) 25 mg PO Q6H PRN PRN Reason: Anxiety Last Admin: 11/24/18 23:41 Dose: 25 mg Paroxetine HCl (Paxil) 10 mg PO DAILY [facility] Last Admin: 11/25/18 09:34 Dose: 10 mg Penicillin G Benzathine (Bicillin L-A Inj) 2,400,000 units IM ONCE ONE; Protocol Stop: 11/26/18 07:01 Trazodone HCl (Desyrel) 100 mg PO [facility] Physical Exam - Constitutional Appears: Well Results - Vital Signs Recent Vital Signs: Last Vital Signs Temp 97.9 F 11/25/18 06:42 Pulse 97 H 11/25/18 15:45 Resp 18 11/25/18 06:42 BP 134/76 11/25/18 15:45 Pulse Ox 100 11/22/18 17:29 - Labs Result Diagrams: 11/22/18 15:15 11/22/18 15:15 Assessment & Plan (1) Depression Status: Acute (2) History of syphilis Status: Acute - Assessment and Plan (Free Text) Assessment: cannot r/o recent exposure to syphilis despite hx of treatment OK to retreat and follow titers as out patient screen for all STD's and alcohol and drug counselor accordingly emmanuel Jordan
[2018-11-25 20:41] LABS: HEPATITIS B SURFACE AG Negative (NEGATIVE)
[2018-11-25 20:47] LABS: HEPATITIS A IGM NEGATIVE (NEGATIVE); HEPATITIS B CORE AB NEGATIVE (NEGATIVE)
[2018-11-25 20:59] LABS: HEPATITIS C ANTIBODY NEGATIVE (NEGATIVE)
[2018-11-25 21:18] LABS: RAPID PLASMA REAGIN REACTIVE (NONREACTIVE)
[2018-11-26] MEDS ORDERED: Penicillin G Benzathine 2.4 Mill Unit/4 ml Syr IM ONE (07:00)
[2018-11-26] MEDS: Emtricitabine-Tenofovir 200 mg-300 mg Tab PO SCH (10:00)
--- NOTE | 2018-11-26 11:33 | CP.PCM.PN ---
<Flako Tomlinson - Last Filed: 11/26/18 11:29> Subjective - Date & Time of Evaluation Date of Evaluation: 11/26/18 Time of Evaluation: 11:30 - Subjective Subjective: PGY1 Medicine Progress Note Patient was seen and evaluated at bedside this morning. Patient agreed to complete the penicillin treatment today. Patient complains of chapped lips. Patient otherwise denies chest pain, shortness of breath, back pain, lower extremity edema, dizziness, headache, nausea, vomiting, fever, and/or chills. Objective - Vital Signs/Intake and Output Vital Signs (last 24 hours): Temp Pulse Resp BP Pulse Ox 97.9 F 97 H 18 134/76 100 11/25/18 06:42 11/25/18 15:45 11/25/18 06:42 11/25/18 15:45 11/22/18 17:29 - Medications Medications: Current Medications Emtricitabine/Tenofovir (Truvada 200 Mg-300 Mg) 1 tab PO DAILY [facility]; Protocol Stop: 11/30/18 10:01 Last Admin: 11/26/18 10:00 Dose: 1 tab Gabapentin (Neurontin) 100 mg PO TID [facility] Last Admin: 11/26/18 10:00 Dose: 100 mg Hydroxyzine HCl (Atarax) 25 mg PO Q6H PRN PRN Reason: Anxiety Last Admin: 11/24/18 23:41 Dose: 25 mg Paroxetine HCl (Paxil) 10 mg PO DAILY [facility] Last Admin: 11/26/18 10:00 Dose: 10 mg Trazodone HCl (Desyrel) 100 mg PO HS [facility] Last Admin: 11/25/18 21:45 Dose: 100 mg - Labs Labs: 11/22/18 15:15 11/22/18 15:15 - Additional Findings Additional findings: - Constitutional Appears: Non-toxic, No Acute Distress - Head Exam Head Exam: ATRAUMATIC, NORMAL INSPECTION - Eye Exam Eye Exam: EOMI, Normal appearance, PERRL - ENT Exam ENT Exam: Mucous Membranes Moist - Neck Exam Neck exam: Positive for: Normal Inspection - Respiratory Exam Respiratory Exam: Clear to Auscultation Bilateral, NORMAL BREATHING PATTERN. absent: Accessory Muscle Use, Rales, Rhonchi, Wheezes, Respiratory Distress - Cardiovascular Exam Cardiovascular Exam: RRR, +S1, +S2 - GI/Abdominal Exam GI & Abdominal Exam: Soft. absent: Distended, Tenderness - Exam Exam: NORMAL INSPECTION. absent: Circumcision, Scrotal Swelling, Testicular Tenderness, Uretheral Discharge Additional comments: no chancre - Extremities Exam Extremities exam: Positive for: normal inspection. Negative for: pedal edema, tenderness - Neurological Exam Neurological exam: Alert, CN II-XII Intact, Normal Gait, Oriented x3 - Psychiatric Exam Psychiatric exam: Normal Affect, Normal Mood - Skin Skin Exam: Dry, Intact, Normal Color, Pallor, Warm Assessment and Plan - Assessment and Plan (Free Text) Assessment: Patient is a 32 yo homeless male with a history of syphilis, gonorrhea, and polysubstance abuse who is presently admitted to the psychiatric unit for suicidal ideation. Hospitalists were consulted because RPR and FTA-ABS are positive for syphilis. Patient reports that he was treated with "injections" for syphilis about 8 months ago in [facility]. Patient signed records release form, but the facility said their system is down and to call back on Wednesday to obtain medical records. Patient denies any physical symptoms. Plan: RPR positive, FTA-ABS positive - Patient denies any symptoms, exam did not reveal any chancre, rash, or neuro abnormalities - Repeat STI testing- HIV, Hepatitis, RPR, HPV, G/C - Penicillin G IM 2,400,000 units x1 - Counseled on safe sex practices, including using protection and disclosing STIs to sexual partners - ID consulted (Freida); recommendations appreciated Polysubstance use disorder - Patient reports using cocaine and meth (intranasal, inhaled), denies IVDA - Cessation counseling - Further management as per psychiatry Mood disorder - Management as per psychiatry - Presently on Gabapentin 100 mg PO TID, Paxil 10 mg PO daily, Trazodone 100 mg PO QHS, Hydroxyzine 25 mg PO Q6H PRN PREP prophylaxis - Continue Truvada Code status: full code Thank you for allowing us to participate in the care of this Patient. Please consult again as needed. Case discussed with Dr. Nicolasa Tomlinson PGY1 <Mannie Gu - Last Filed: 11/26/18 19:41> Objective - Vital Signs/Intake and Output Vital Signs (last 24 hours): Temp Pulse Resp BP Pulse Ox 97.9 F 90 18 121/72 100 11/25/18 06:42 11/26/18 15:55 11/25/18 06:42 11/26/18 15:55 11/22/18 17:29 - Medications Medications: Current Medications Emtricitabine/Tenofovir (Truvada 200 Mg-300 Mg) 1 tab PO DAILY [facility]; Protocol Stop: 11/30/18 10:01 Last Admin: 11/26/18 10:00 Dose: 1 tab Gabapentin (Neurontin) 100 mg PO TID [facility] Last Admin: 11/26/18 18:53 Dose: 100 mg Hydroxyzine HCl (Atarax) 25 mg PO Q6H PRN PRN Reason: Anxiety Last Admin: 11/24/18 23:41 Dose: 25 mg Paroxetine HCl (Paxil) 10 mg PO DAILY [facility] Last Admin: 11/26/18 10:00 Dose: 10 mg Trazodone HCl (Desyrel) 100 mg PO HS [facility] Last Admin: 11/25/18 21:45 Dose: 100 mg Vitamin A (Vitamin A & D Oint Ud Foilpak) 1 ea TOP BID [facility] Last Admin: 11/26/18 18:53 Dose: 1 ea - Labs Labs: 11/22/18 15:15 11/22/18 15:15 Attending/Attestation - Attestation I have personally seen and examined this patient.: Yes I have fully participated in the care of the patient.: Yes I have reviewed all pertinent clinical information, including history, physical exam and plan: Yes Notes (Text): 11/26/18 19:39 Patient was seen and examined shortly after resident. Care of this patient was gone over with the resident. Explained at length to patient that he must practice safe sex for his health as well as his partners. Patient understands that he must follow up with [place] [facility] for pending lab tests and further coordination of his medical care. Medicine Team is signing off. Mannie Gu D.O.
[2018-11-26] MEDS ORDERED: Vitamins A & D Oint UD Foilpak TOP SCH (11:45)
[2018-11-26] MEDS: Vitamins A & D Oint UD Foilpak TOP SCH ×2 (11:57→18:53)
--- NOTE | 2018-11-26 22:51 | PCM.PYCHPN ---
Psychiatric Progress Note - Psychiatric Progress Note Patient seen today, length of contact: 15 min Patient Chief Complaint: I am feeling little better as my sleep is not good. Problems Identified/Issues Discussed: Patient seen, chart reviewed, case discussed with the staff. Issues related to illness and treatment were discussed with the patient and staff. Reported compliant with treatment with no adverse effects. Tolerating treatment very well. Reported feeling little better as his sleep is not good yet. Will increase the dose of trazodone to 150 mg. Patient understood and agreed. Mood reported as okay. Affect appropriate. Calm and cooperative Awake, alert and oriented x3. Aftercare discussed with the patient. Denied any delusions, auditory or visual hallucinations, suicidal ideations or homicidal ideations at the time of evaluation. Medical Problems: HIV Syphilis Diagnostic Results: Reviewed DSM 5 Symptoms Update: Some improvement with treatment for Medication Change: Yes (Dose of trazodone increased to 150 mg) Medical Record Reviewed: Yes Mental Status Examination - Cognitive Function Orientation: Person, Place, Situation, Time Memory: Intact Attention: WNL Concentration: WNL Association: WNL Fund of Knowledge: [facility] Decription of patient's judgement and insights: Fair - Mood Mood: Depressed (Much less than before) - Affect Affect: Depressed - Speech Speech: Soft - Formal Thought Process Formal Thought Process: No Impairment Psychotic Thoughts and Behaviors: None - Suicidal Ideation Suicidal Ideation: No - Homicidal Ideation Homicidal Ideation: No Goal/Treatment Plan - Goal/Treatment Plan Need for Continued Stay: Remain at risks for inpatient hospitalization, Discharge may exacerbated symptoms, Severe functional impairment Progress Toward Problem(s) and Goals/Treatment Plan: Some improvement with treatment. Patient education. Supportive therapy. Continue treatment as before. Estimated Date of D/C: 11/30/18 - Smoking Cessation Smoking Cessation Initiated: No
[2018-11-27] MEDS: Vitamins A & D Oint UD Foilpak TOP SCH ×3 (09:29→21:01)
[2018-11-27] MEDS: Emtricitabine-Tenofovir 200 mg-300 mg Tab PO SCH (09:29)
[2018-11-28] MEDS: Emtricitabine-Tenofovir 200 mg-300 mg Tab PO SCH (10:22)
[2018-11-28] MEDS: Vitamins A & D Oint UD Foilpak TOP SCH (10:23)
--- NOTE | 2018-11-28 15:09 | PCM.PYCHPN ---
Psychiatric Progress Note - Psychiatric Progress Note Patient seen today, length of contact: 15 min Patient Chief Complaint: I m feeling little better Problems Identified/Issues Discussed: Patient was seen and evaluated, chart reviewed and discussed the staff. Patient reports some improvement in his depressed mood but reports some improvement in the feelings of hopelessness and helplessness. He also reports some improvement in irritability and agitation. However he denies any AVH. He is taking medication and denies any side effects. Symptoms are improving gradually but he needs to stay longer for further stabilization. Supportive therapy was given Medication Change: Yes (Dose of trazodone increased to 150 mg) Medical Record Reviewed: Yes Mental Status Examination - Cognitive Function Orientation: Person, Place, Situation, Time Memory: Intact Attention: WNL Concentration: WNL Association: WNL Fund of Knowledge: WNL - Mood Mood: Depressed (Much less than before) - Affect Affect: Depressed - Speech Speech: Soft - Formal Thought Process Formal Thought Process: No Impairment - Suicidal Ideation Suicidal Ideation: No - Homicidal Ideation Homicidal Ideation: No Goal/Treatment Plan - Goal/Treatment Plan Need for Continued Stay: Remain at risks for inpatient hospitalization, Discharge may exacerbated symptoms, Severe functional impairment Progress Toward Problem(s) and Goals/Treatment Plan: Bipolar disorder depressed severe with psychotic features CBT Psychoeducation Supportive therapy and group therapy Trazodone for insomnia Hydroxyzine for anxiety Neurontin augmentation Paxil for depression Estimated Date of D/C: 11/30/18
[2018-11-29 09:45] VITALS: RESP 20
[2018-11-29] MEDS: Emtricitabine-Tenofovir 200 mg-300 mg Tab PO SCH (09:59)
[2018-11-29] MEDS: Vitamins A & D Oint UD Foilpak TOP SCH ×2 (10:02→17:53)
[2018-11-30 07:02] VITALS: BP 112/65; PULSE 82; TEMP 97.5; O2SAT 97
[2018-11-30] MEDS: Vitamins A & D Oint UD Foilpak TOP SCH (09:50)
--- NOTE | 2018-11-30 10:38 | PCM.PYCHPN ---
Psychiatric Progress Note - Psychiatric Progress Note Patient seen today, length of contact: 15 min Patient Chief Complaint: I m feeling little better Problems Identified/Issues Discussed: Patient was seen and evaluated, chart reviewed and discussed the staff. Per staff he is more social. Patient reports some improvement in his depressed mood but reports some improvement in the feelings of hopelessness and helplessness. He also reports some improvement in irritability and agitation. However he denies any AVH. He is taking medication and denies any side effects. Symptoms are improving gradually but he needs to stay longer for further stabilization. Supportive therapy was given Medication Change: Yes (Dose of trazodone increased to 150 mg) Medical Record Reviewed: Yes Mental Status Examination - Cognitive Function Orientation: Person, Place, Situation, Time Memory: Intact Attention: WNL Concentration: WNL Association: WNL Fund of Knowledge: WNL - Mood Mood: Depressed (Much less than before) - Affect Affect: Depressed - Speech Speech: Soft - Formal Thought Process Formal Thought Process: No Impairment - Suicidal Ideation Suicidal Ideation: No - Homicidal Ideation Homicidal Ideation: No Goal/Treatment Plan - Goal/Treatment Plan Need for Continued Stay: Remain at risks for inpatient hospitalization, Disch arge may exacerbated symptoms, Severe functional impairment Progress Toward Problem(s) and Goals/Treatment Plan: Bipolar disorder depressed severe with psychotic features CBT Psychoeducation Supportive therapy and group therapy Trazodone for insomnia Hydroxyzine for anxiety Neurontin augmentation Paxil for depression Estimated Date of D/C: 11/30/18
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
== END 2018-11-30 12:15 | disposition home or self-care (01) | DRG 753 ==
LOC: C.ER 14:39 → C.5E 17:26
PROC: GZ3ZZZZ Medication Management (ICD-10-PCS; principal; 2018-11-22)
PROC: GZHZZZZ Group Psychotherapy (ICD-10-PCS; 2018-11-22)
PROC: GZ56ZZZ Individual Psychotherapy, Supportive (ICD-10-PCS; 2018-11-22)
DX: F31.5 Bipolar disorder, current episode depressed, severe, with psychotic features (principal); R45.851 Suicidal ideations; F12.90 Cannabis use, unspecified, uncomplicated; F41.9 Anxiety disorder, unspecified; G47.00 Insomnia, unspecified; F17.210 Nicotine dependence, cigarettes, uncomplicated; A53.0 Latent syphilis, unspecified as early or late; Z59.0 Homelessness; Z63.8 Other specified problems related to primary support group

== ENCOUNTER 2018-12-07 12:33 | Emergency (ER) | payer OTHER ==
[2018-12-07 12:34] VITALS: BMI 19.0
[2018-12-07 15:08] LABS: BASO # 0.1 K/uL (0.0-0.2); BASO % 1.1 % (0.0-2.0); EOS # 0.2 K/uL (0.0-0.7); EOS % 2.1 % (0.0-4.0); LYMPH # 1.7 K/uL (1.0-4.3); LYMPH % 20.7 % (20.0-40.0); MEAN CELL VOLUME 91.1 fL (80.0-94.0); MEAN CORPUSCULAR HEMOGLOBIN 29.9 pg (27.0-31.0); MEAN CORPUSCULAR HGB CONC 32.8 g/dL (33.0-37.0); MEAN PLATELET VOLUME 9.5 fL (7.2-11.7); MONO # 0.6 K/uL (0.0-0.8); NEUT # 5.5 K/uL (1.8-7.0); NEUT % 68.1 % (50.0-75.0); RBC 4.37 Mil/uL (4.40-5.90); RED CELL DISTRIBUTION WIDTH 14.2 % (11.5-14.5)
[2018-12-07 15:11] LABS: WHITE BLOOD COUNT 8.1 K/uL (4.8-10.8)
[2018-12-07 15:33] LABS: ALB/GLOB RATIO 1.8 (1.0-2.1); ALBUMIN 4.7 g/dL (3.5-5.0); ALT/SGPT 37 U/L (21-72); AST/SGOT 28 U/L (17-59); BLOOD UREA NITROGEN 10 mg/dL (9-20); CALCIUM 9.1 mg/dl (8.6-10.4); GFR NON-AFRICAN AMERICAN > 60
--- NOTE | 2018-12-07 16:03 | C.PDOC ---
History Of Present Illness 32 year old male presents to the ED for evaluation of 2-3 week history of headache and transient vision loss bilaterally. Patient states his headache is right-sided, describes a pressure-like sensation that occurs in intermittent epi sodes. He states the headache persists for several minutes to hours prior to spontaneous self-resolution. Patient denies prior episode of the same. He states the headache is associated with multiple daily episodes of vision loss, lasting a few seconds, followed by a several minute period of returned vision described as blurry and spotting prior to returning to normal vision. Patient denies prior episode of same in the past. Patient denies pain associated with vision loss. He also reports mild nasal congestion, mild cough, mild nausea and mild myalgias. He denies vomiting and diarrhea. Patient has past medical history of polysubstance abuse, IVDA, and prior syphillis infection (treated several months ago). Patient has a strong family cardiac history in both parents. He has family history of two younger siblings, who passed at a young age due to septal defects of the heart. Time Seen by Provider: 12/07/18 14:06 Chief Complaint (Nursing): Eye Problem History Per: Patient History/Exam Limitations: no limitations Onset/Duration Of Symptoms: Persistent, Other (2-3 weeks ) Current Symptoms Are (Timing): Still Present Quality: Aching, Pressure Additional History Per: Patient Past Medical History Reviewed: Historical Data, Nursing Documentation, Vital Signs Vital Signs: Last Vital Signs Temp 98.2 F 12/07/18 12:45 Pulse 63 12/07/18 12:45 Resp 17 12/07/18 12:45 BP 129/70 12/07/18 12:45 Pulse Ox 95 12/07/18 12:45 - Medical History PMH: Anxiety, Depression Denies: Asthma, Bronchitis, Diabetes, Hepatitis, HIV, HTN, Kidney Stones, Chronic Kidney Disease, Seizures, Sexually Transmitted Disease Surgical History: No Surg Hx - [facility] Procedures DRAINAGE OF R LOW LEG SUBCU/FASCIA, OPEN APPROACH (09/16/18) GROUP PSYCHOTHERAPY (11/22/18) INDIVIDUAL PSYCHOTHERAPY, SUPPORTIVE (11/22/18) MEDICATION MANAGEMENT (11/22/18) Family History: States: Unknown Family Hx - Social History Hx Alcohol Use: No Hx Substance Use: No - Immunization History Hx Tetanus Toxoid Vaccination: No Hx Influenza Vaccination: Yes Hx Pneumococcal Vaccination: No Review Of Systems Eyes: Positive for: Vision Change ENT: Positive for: Nose Congestion Respiratory: Positive for: Cough Gastrointestinal: Positive for: Nausea. Negative for: Vomiting, Diarrhea Musculoskeletal: Positive for: Other (myalgias) Neurological: Positive for: Headache Physical Exam - Physical Exam Appears: Non-toxic, No Acute Distress, Other (thin, frail, poor hygiene) Skin: Normal Color, Warm, Dry Head: Atraumatic, Normacephalic, No Other (sinus or scalp tenderness ) Eye(s): bilateral: Normal Inspection, PERRL, EOMI, Other (dilated at 4mm (baseline), but able to accomodate. Visual acuity 20/25. Normal fundoscopic examination ) Ear(s): Bilateral: Normal Nose: Normal, No Discharge, No Other (boggy turbinates ) Throat: No Erythema, No Exudate, No Other (tonsillar enlargement ) Neck: Normal ROM, No Midline Cervical Tenderness, No Paracervical Tenderness, Supple Chest: Symmetrical, No Deformity, No Tenderness Cardiovascular: Rhythm Regular, No Murmur Respiratory: Normal Breath Sounds, No Rales, No Rhonchi, No Wheezing Extremity: Normal ROM, Capillary Refill (less than 2 seconds ) Neurological/Psych: Oriented x3, Normal Speech, Normal Cognition ED Course And Treatment - Laboratory Results Result Diagrams: 12/07/18 15:04 12/07/18 15:04 O2 Sat by Pulse Oximetry: 95 (on RA ) Pulse Ox Interpretation: Normal Progress Note: Bloodwork and Brain MRI ordered. Ativan IVP given. Disposition Counseled Patient/Family Regarding: Studies Performed, Diagnosis, Need For Followup - Disposition Referrals: Kaushik Hernandez MD [Staff Provider] - [facility] [Outside] Marek Kruse [Staff Provider] - Disposition: HOME/ ROUTINE Disposition Time: 18:30 Condition: STABLE Additional Instructions: FOLLOW UP WITH NEUROLOGY WITHIN 1 WEEK FOLLOW UP WITH MEDICAL CLINIC IN 1-2 DAYS RETURN TO ER IF SYMPTOMS WORSEN Forms: [facility] (Bangladeshi), General Discharge Instructions - Clinical Impression Clinical Impression: Blurry vision, bilateral - Scribe Statement The provider has reviewed the documentation as recorded by the Scribe (Junie Gu) Provider Attestation: All medical record entries made by the Scribe were at my direction and p ersonally dictated by me. I have reviewed the chart and agree that the record accurately reflects my personal performance of the history, physical exam, medical decision making, and the department course for this patient. I have also personally directed, reviewed, and agree with the discharge instructions and disposition.
[2018-12-07] MEDS ORDERED: Gadodiamide 287 MG/ML VIAL (15ML) IV ONE (16:58)
[2018-12-07 18:30] VITALS: BP 127/76; PULSE 80; RESP 16; TEMP 98.7
[2018-12-07 18:48] VITALS: O2SAT 95
--- NOTE | 2018-12-08 12:02 | MRI ---
Date of service: 12/07/2018 PROCEDURE: MRI BRAIN WITH AND WITHOUT CONTRAST HISTORY: Visual loss, history of syphilis, IV drug use COMPARISON: None available. TECHNIQUE: Multiplanar, multisequence MR images of the brain were obtained with and without intravenous contrast enhancement. 11 ml Omniscan was injected intravenously. FINDINGS: HEMORRHAGE: None DWI: No evidence of an acute or early subacute infarction. BRAIN PARENCHYMA: Nicolas-white matter differentiation is preserved. There is no mass, mass effect or abnormal extra-axial fluid collection. There is no territorial infarction. The midline sagittal structures are normal. ENHANCEMENT: No abnormal intracranial enhancement. VENTRICLES: The ventricles are normal in size, shape and configuration. CRANIUM: There is normal bone marrow signal pattern. ORBITS: Grossly unremarkable. PARANASAL SINUSES/MASTOIDS: Predominantly clear. VASCULAR SYSTEM: There are normal signal voids in the larger intracranial arteries. OTHER FINDINGS: None . IMPRESSION: Unremarkable pre and post contrast enhanced MRI of the brain. A preliminary report was provided by [facility].
== END 2018-12-07 18:49 | disposition home or self-care (01) ==
LOC: C.ER 12:33
DX: H53.8 Other visual disturbances (principal)
CPT/HCPCS: 70553; 80053; 85025; 96374; 99285; J2060

== ENCOUNTER 2018-12-19 13:31 | Observation (INO) | payer OTHER ==
[2018-12-19 13:31] VITALS: BMI 19.0
[2018-12-19 14:20] LABS: BASO # 0.1 K/uL (0.0-0.2); EOS # 0.1 K/uL (0.0-0.7); EOS % 1.1 % (0.0-4.0); HEMOGLOBIN 13.7 g/dL (12.0-18.0); LYMPH # 1.9 K/uL (1.0-4.3); LYMPH % 24.9 % (20.0-40.0); MEAN CELL VOLUME 89.5 fL (80.0-94.0); MEAN CORPUSCULAR HGB CONC 34.7 g/dL (33.0-37.0); MEAN PLATELET VOLUME 9.5 fL (7.2-11.7); MONO # 0.5 K/uL (0.0-0.8); MONO % 6.6 % (0.0-10.0); NEUT % 66.4 % (50.0-75.0); RBC 4.41 Mil/uL (4.40-5.90); WHITE BLOOD COUNT 7.5 K/uL (4.8-10.8)
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
[2018-12-19 14:28] LABS: PARTIAL THROMBOPLASTIN TIME 29 SECONDS (21-34); PROTHROMBIN TIME 10.6 SECONDS (9.7-12.2)
[2018-12-19 14:31] LABS: URINE BILIRUBIN NEGATIVE (NEGATIVE); URINE BLOOD NEGATIVE (NEGATIVE); URINE CLARITY Clear (Clear); URINE COLOR Straw (YELLOW); URINE GLUCOSE (UA) NORMAL (Normal); URINE LEUKOCYTE ESTERASE NEG Leu/uL (Negative); URINE PROTEIN NEGATIVE (NEGATIVE); URINE UROBILINOGEN NORMAL mg/dL (0.2-1.0)
[2018-12-19 14:40] LABS: D DIMER < 200 ng/mlDDU (0-243)
[2018-12-19 14:51] LABS: B-TYPE NATRIURETIC PEPTIDE 68.5 pg/mL (0-450)
[2018-12-19 14:53] LABS: ALB/GLOB RATIO 1.8 (1.0-2.1); ALBUMIN 4.8 g/dL (3.5-5.0); ALT/SGPT 27 U/L (21-72); AST/SGOT 33 U/L (17-59); BLOOD UREA NITROGEN 14 mg/dL (9-20); CALCIUM 9.3 mg/dl (8.6-10.4); GFR NON-AFRICAN AMERICAN > 60
--- NOTE | 2018-12-19 14:57 | RAD ---
Date of service: 12/19/2018 PROCEDURE: CHEST RADIOGRAPH, 1 VIEW HISTORY: SOB COMPARISON: None available. FINDINGS: LUNGS: The lungs are well inflated and clear. PLEURA: No pneumothorax or pleural effusion. CARDIOVASCULAR: The heart is normal in size. No aortic atherosclerotic calcifications present. OSSEOUS STRUCTURES: Within normal limits for the patient's age. VISUALIZED UPPER ABDOMEN: Normal. OTHER FINDINGS: None. IMPRESSION: No active pulmonary disease.
--- NOTE | 2018-12-19 15:56 | CP.PCM.HP ---
History of Present Illness - History of Present Illness History of Present Illness: This is a 33 yo male, originally from [place], with past medical hx of gonorrhea, syphilis, substance abuse, psych hx and depression/bipolar presenting to hospital with chief complaint of chest pain. Patient is present with partner. Patient says he has had this chest pain on and off since age 10. However, this acute episode began at 1 PM today. Pt was with partner at [employer] in [place] eating when pain started. It is sharp and substernal. Patient says it lasts for only a few sec when it comes on. At time of interview, pt denies chest pain but does report sob. Denies fevers, chills, or other associated sx. Denies anything that makes it better or worse. Says it does hurt to palpation but not quite the same pain that happens spontaneously. Did not take any meds for it at restaurant and called ambulance at the restaurant. Says he had recent normal stress test but never a cardiac cath. PMH: syphilis, gonorrhea, depression, bipolar, substance abuse PSH: sx/ I/D for MRSA infection on leg Allergies: NKDA FH: reports 2 sisters and brother with congenital heart defects; also reports grandparent with RI Meds: truvada, paxil, gabapentin, trazodone Social: current smoker. 1 cig/week. Social drinker. No drug use. Homeless, lives in [facility]. Born in [place]. Denies current drug use but previous records indicate cocaine and meth use. Sexual hx: Male partners only. Sexually active. Present on Admission - Present on Admission Any Indicators Present on Admission: No History of DVT/PE: No History of Uncontrolled Diabetes: No Urinary Catheter: No Decubitus Ulcer Present: No Review of Systems - Constitutional Constitutional: absent: Chills, Daytime Sleepiness, Fever - EENT Eyes: Blurred Vision. absent: Dry Eye Ears: absent: Ear Discharge, Ear Pain Nose/Mouth/Throat: absent: Nasal Congestion, Nasal Discharge - Cardiovascular Cardiovascular: Chest Pain, Chest Pain at Rest, Dyspnea - Respiratory Respiratory: Dyspnea. absent: Cough - Gastrointestinal Gastrointestinal: absent: Abdominal Pain, Bloating - Genitourinary Genitourinary: Change in Urinary Stream. absent: Difficulty Urinating, Dysuria - Musculoskeletal Musculoskeletal: absent: Abnormal Gait, Back Pain - Integumentary Integumentary: absent: Acne, Bleeding Lesions - Neurological Neurological: absent: Abnormal Gait, Abnormal Hearing, Abnormal Movements - Psychiatric Psychiatric: Depression. absent: Auditory Hallucinations, Visual Hallucinations - Endocrine Endocrine: absent: Change in Body Appearance, Change in Libido - Hematologic/Lymphatic Hematologic: absent: Easy Bleeding, Easy Bruising Past Patient History - Infectious Disease Hx of Infectious Diseases: None - Tetanus Immunizations Tetanus Immunization: Unknown - Past Medical History & Family History Past Medical History?: Yes - Past Social History Smoking Status: Light Smoker < 10 Cigarettes Daily - CARDIAC Hx Hypertension: No - PULMONARY Hx Asthma: No Hx Bronchitis: No - NEUROLOGICAL Hx Seizures: No - HEENT Hx HEENT Problems: No - RENAL Hx Chronic Kidney Disease: No Hx Kidney Stones: No - ENDOCRINE/METABOLIC Hx Endocrine Disorders: No - HEMATOLOGICAL/ONCOLOGICAL Hx Human Immunodeficiency Virus (HIV): No - INTEGUMENTARY Other/Comment: Cellulitis on right upper groin - MUSCULOSKELETAL/RHEUMATOLOGICAL Hx Musculoskeletal Disorders: No Hx Falls: No - GASTROINTESTINAL Hx Gastrointestinal Disorders: No - GENITOURINARY/GYNECOLOGICAL Hx Sexually Transmitted Disorders: No - PSYCHIATRIC Hx Anxiety: Yes Hx Depression: Yes Hx Substance Use: No - SURGICAL HISTORY Hx Surgeries: Yes Other/Comment: RIGHT INNER THIGH SURGERY - ANESTHESIA Hx Anesthesia: Yes Hx Anesthesia Reactions: No Hx Malignant Hyperthermia: No Meds Allergies/Adverse Reactions: Allergies Allergy/AdvReac Type Severity Reaction Status Date / Time No Known Allergies Allergy Verified 12/19/18 13:56 Physical Exam - Constitutional Appears: Non-toxic, No Acute Distress - Head Exam Head Exam: ATRAUMATIC, NORMAL INSPECTION, NORMOCEPHALIC - Eye Exam Eye Exam: EOMI - ENT Exam ENT Exam: Mucous Membranes Moist - Neck Exam Neck exam: Positive for: Full Rom, Normal Inspection - Respiratory Exam Respiratory Exam: Chest Wall Tenderness, NORMAL BREATHING PATTERN. absent: Respiratory Distress - Cardiovascular Exam Cardiovascular Exam: REGULAR RHYTHM, +S1, +S2 - GI/Abdominal Exam GI & Abdominal Exam: Normal Bowel Sounds, Soft, Tenderness - Extremities Exam Extremities exam: Positive for: full ROM, normal inspection - Back Exam Back exam: NORMAL INSPECTION - Neurological Exam Neurological exam: Alert, CN II-XII Intact, Oriented x3 - Psychiatric Exam Psychiatric exam: Normal Affect, Normal Mood - Skin Skin Exam: Dry, Intact, Normal Color, Warm Results - Vital Signs Recent Vital Signs: Last Vital Signs Temp 99 F 12/19/18 15:20 Pulse 86 12/19/18 15:20 Resp 14 12/19/18 15:20 BP 116/63 12/19/18 15:20 Pulse Ox 99 12/19/18 15:24 - Labs Result Diagrams: 12/19/18 14:14 12/19/18 14:14 Labs: Laboratory Results - last 24 hr 12/19/18 12/19/18 12/19/18 14:14 14:14 14:14 WBC 7.5 RBC 4.41 Hgb 13.7 Hct 39.5 MCV 89.5 MCH 31.0 MCHC 34.7 RDW 14.0 Plt Count 251 MPV 9.5 Neut % (Auto) 66.4 Lymph % (Auto) 24.9 [place] % (Auto) 6.6 Eos % (Auto) 1.1 Baso % (Auto) 1.0 Neut # (Auto) 5.0 Lymph # (Auto) 1.9 [place] # (Auto) 0.5 Eos # (Auto) 0.1 Baso # (Auto) 0.1 PT 10.6 INR 1.0 APTT 29 D-Dimer, Quantitative < 200 Sodium Potassium Chloride Carbon Dioxide Anion Gap BUN Creatinine Est GFR ( Amer) Est GFR (Non-Af Amer) Random Glucose Calcium Total Bilirubin AST ALT Alkaline Phosphatase Troponin I NT-Pro-B Natriuret Pep Total Protein Albumin Globulin Albumin/Globulin Ratio Urine Color Straw Urine Clarity Clear Urine pH 7.0 Ur Specific [place] 1.006 Urine Protein Negative Urine Glucose (UA) Normal Urine Ketones Negative Urine Blood Negative Urine Nitrate Negative Urine Bilirubin Negative Urine Urobilinogen Normal Ur Leukocyte Esterase Neg Urine WBC (Auto) < 1 Urine RBC (Auto) < 1 Alcohol, Quantitative 12/19/18 14:14 WBC RBC Hgb Hct MCV MCH MCHC RDW Plt Count MPV Neut % (Auto) Lymph % (Auto) [place] % (Auto) Eos % (Auto) Baso % (Auto) Neut # (Auto) Lymph # (Auto) [place] # (Auto) Eos # (Auto) Baso # (Auto) PT INR APTT D-Dimer, Quantitative Sodium 138 Potassium 3.8 Chloride 99 Carbon Dioxide 31 H Anion Gap 12 BUN 14 Creatinine 0.8 Est GFR ( Amer) > 60 Est GFR (Non-Af Amer) > 60 Random Glucose 93 Calcium 9.3 Total Bilirubin 0.3 AST 33 ALT 27 Alkaline Phosphatase 88 Troponin I < 0.0120 NT-Pro-B Natriuret Pep 68.5 Total Protein 7.5 Albumin 4.8 Globulin 2.7 Albumin/Globulin Ratio 1.8 Urine Color Urine Clarity Urine pH Ur Specific [place] Urine Protein Urine Glucose (UA) Urine Ketones Urine Blood Urine Nitrate Urine Bilirubin Urine Urobilinogen Ur Leukocyte Esterase Urine WBC (Auto) Urine RBC (Auto) Alcohol, Quantitative < 10 Assessment & Plan - Assessment and Plan (Free Text) Assessment: This is a 33 yo male with 1. Chest pain -ekg nsr shows borderline LVH, will repeat -trops x 3 - 1st negative -serial ekgs -asa 81 daily -lipid panel -previous a1c wnl -cxr portable negative -will repeat cxr pa and lateral tomorrow -urine drug screen pending -UA negative -consider cardiology consult. 2. high risk sexual activity -continue truvada for ppx -pt reports being compliant 3. hx of depression -continue paxil -continue gabapentin 4. GI/DVT ppx -scds -protonix [address] Cleveland
[2018-12-19 16:36] LABS: LDL CHOLESTEROL 87 mg/dL (0-129)
[2018-12-19 16:44] LABS: HDL CHOLESTEROL 69 mg/dL (30-70)
[2018-12-19 16:51] LABS: BARBITURATES, UR NEGATIVE (NEGATIVE); BENZODIAZEPINES, UR NEGATIVE (NEGATIVE); OPIATES, UR NEGATIVE (NEGATIVE); PHENCYCLIDINE, UR NEGATIVE (NEGATIVE)
[2018-12-19 20:44] VITALS: RESP 20; O2SAT 98
[2018-12-20 02:45] LABS: BASO # 0.1 K/uL (0.0-0.2); EOS # 0.1 K/uL (0.0-0.7); HEMOGLOBIN 13.7 g/dL (12.0-18.0); LYMPH # 2.5 K/uL (1.0-4.3); LYMPH % 34.4 % (20.0-40.0); MEAN CORPUSCULAR HEMOGLOBIN 29.7 pg (27.0-31.0); MEAN PLATELET VOLUME 9.6 fL (7.2-11.7); MONO # 0.5 K/uL (0.0-0.8); MONO % 6.5 % (0.0-10.0); NEUT # 4.1 K/uL (1.8-7.0); NEUT % 56.1 % (50.0-75.0); RBC 4.61 Mil/uL (4.40-5.90); WHITE BLOOD COUNT 7.3 K/uL (4.8-10.8)
[2018-12-20 02:46] LABS: ALB/GLOB RATIO 1.6 (1.0-2.1); ALT/SGPT 27 U/L (21-72); AST/SGOT 25 U/L (17-59); BLOOD UREA NITROGEN 19 mg/dL (9-20); CALCIUM 8.8 mg/dl (8.6-10.4); GFR NON-AFRICAN AMERICAN > 60
[2018-12-20] MEDS ORDERED: Emtricitabine-Tenofovir 200 mg-300 mg Tab PO SCH (10:00)
--- NOTE | 2018-12-20 11:03 | CP.PCM.DIS ---
Provider - Provider Date of Admission: 12/19/18 15:24 Attending physician: Kaitlyn Ceballos DO Time Spent in preparation of Discharge (in minutes): 120 Diagnosis - Discharge Diagnosis (1) Chest pain Status: Acute Hospital Course - Lab Results Lab Results: Most Recent Lab Values WBC 7.3 K/uL (4.8-10.8) 12/20/18 02:11 RBC 4.61 Mil/uL (4.40-5.90) 12/20/18 02:11 Hgb 13.7 g/dL (12.0-18.0) 12/20/18 02:11 Hct 41.5 % (35.0-51.0) 12/20/18 02:11 MCV 90.0 fL (80.0-94.0) 12/20/18 02:11 MCH 29.7 pg (27.0-31.0) 12/20/18 02:11 MCHC 33.0 g/dL (33.0-37.0) 12/20/18 02:11 RDW 14.0 % (11.5-14.5) 12/20/18 02:11 Plt Count 223 K/uL (130-400) 12/20/18 02:11 MPV 9.6 fL (7.2-11.7) 12/20/18 02:11 Neut % (Auto) 56.1 % (50.0-75.0) 12/20/18 02:11 Lymph % (Auto) 34.4 % (20.0-40.0) 12/20/18 02:11 [place] % (Auto) 6.5 % (0.0-10.0) 12/20/18 02:11 Eos % (Auto) 2.0 % (0.0-4.0) 12/20/18 02:11 Baso % (Auto) 1.0 % (0.0-2.0) 12/20/18 02:11 Neut # (Auto) 4.1 K/uL (1.8-7.0) 12/20/18 02:11 Lymph # (Auto) 2.5 K/uL (1.0-4.3) 12/20/18 02:11 [place] # (Auto) 0.5 K/uL (0.0-0.8) 12/20/18 02:11 Eos # (Auto) 0.1 K/uL (0.0-0.7) 12/20/18 02:11 Baso # (Auto) 0.1 K/uL (0.0-0.2) 12/20/18 02:11 PT 10.6 SECONDS (9.7-12.2) 12/19/18 14:14 INR 1.0 12/19/18 14:14 APTT 29 SECONDS (21-34) 12/19/18 14:14 D-Dimer, Quantitative < 200 ng/mlDDU (0-243) 12/19/18 14:14 Sodium 139 mmol/L (132-148) 12/20/18 02:11 Potassium 3.7 mmol/L (3.6-5.2) 12/20/18 02:11 Chloride 102 mmol/L (98-107) 12/20/18 02:11 Carbon Dioxide 30 mmol/L (22-30) 12/20/18 02:11 Anion Gap 11 (10-20) 12/20/18 02:11 BUN 19 mg/dL (9-20) 12/20/18 02:11 Creatinine 1.3 mg/dL (0.8-1.5) 12/20/18 02:11 Est GFR ( Amer) > 60 12/20/18 02:11 Est GFR (Non-Af Amer) > 60 12/20/18 02:11 Random Glucose 94 mg/dL (75-110) 12/20/18 02:11 Calcium 8.8 mg/dl (8.6-10.4) 12/20/18 02:11 Total Bilirubin 0.5 mg/dL (0.2-1.3) 12/20/18 02:11 AST 25 U/L (17-59) 12/20/18 02:11 ALT 27 U/L (21-72) 12/20/18 02:11 Alkaline Phosphatase 70 U/L (38-126) 12/20/18 02:11 Troponin I < 0.0120 ng/mL (0.00-0.120) 12/20/18 02:11 NT-Pro-B Natriuret Pep 68.5 pg/mL (0-450) 12/19/18 14:14 Total Protein 6.5 g/dL (6.3-8.3) 12/20/18 02:11 Albumin 4.0 g/dL (3.5-5.0) 12/20/18 02:11 Globulin 2.5 gm/dL (2.2-3.9) 12/20/18 02:11 Albumin/Globulin Ratio 1.6 (1.0-2.1) 12/20/18 02:11 Triglycerides 202 mg/dL (0-149) H 12/19/18 14:40 Cholesterol 152 mg/dL (0-199) 12/19/18 14:40 LDL Cholesterol Direct 87 mg/dL (0-129) 12/19/18 14:40 HDL Cholesterol 69 mg/dL (30-70) 12/19/18 14:40 Urine Color Straw (YELLOW) 12/19/18 14:14 Urine Clarity Clear (Clear) 12/19/18 14:14 Urine pH 7.0 (5.0-8.0) 12/19/18 14:14 Ur Specific [place] 1.006 (1.003-1.030) 12/19/18 14:14 Urine Protein Negative mg/dL (NEGATIVE) 12/19/18 14:14 Urine Glucose (UA) Normal mg/dL (Normal) 12/19/18 14:14 Urine Ketones Negative mg/dL (NEGATIVE) 12/19/18 14:14 Urine Blood Negative (NEGATIVE) 12/19/18 14:14 Urine Nitrate Negative (NEGATIVE) 12/19/18 14:14 Urine Bilirubin Negative (NEGATIVE) 12/19/18 14:14 Urine Urobilinogen Normal mg/dL (0.2-1.0) 12/19/18 14:14 Ur Leukocyte Esterase Neg [place]ll/uL (Negative) 12/19/18 14:14 Urine WBC (Auto) < 1 /hpf (0-5) 12/19/18 14:14 Urine RBC (Auto) < 1 /hpf (0-3) 12/19/18 14:14 Urine Opiates Screen Negative (NEGATIVE) 12/19/18 16:10 Urine Methadone Screen Negative (NEGATIVE) 12/19/18 16:10 Ur Barbiturates Screen Negative (NEGATIVE) 12/19/18 16:10 Ur Phencyclidine Scrn Negative (NEGATIVE) 12/19/18 16:10 Ur Amphetamines Screen Negative (NEGATIVE) 12/19/18 16:10 U Benzodiazepines Scrn Negative (NEGATIVE) 12/19/18 16:10 U Oth Cocaine Metabols Negative (NEGATIVE) 12/19/18 16:10 U Cannabinoids Screen Negative (NEGATIVE) 12/19/18 16:10 Alcohol, Quantitative < 10 mg/dl (0-10) 12/19/18 14:14 - Hospital Course Hospital Course: On admission: This is a 33 yo male, originally from [place], with past medical hx of gonorrhea, syphilis, substance abuse, psych hx and depression/bipolar presenting to hospital with chief complaint of chest pain. Patient is present with partner. Patient says he has had this chest pain on and off since age 10. However, this acute episode began at 1 PM today. Pt was with partner at [employer] in [place] eating when pain started. It is sharp and substernal. Patient says it lasts for only a few sec when it comes on. At time of interview, pt denies chest pain but does report sob. Denies fevers, chills, or other associated sx. Denies anything that makes it better or worse. Says it does hurt to palpation but not quite the same pain that happens spontaneously. Did not take any meds for it at restaurant and called ambulance at the restaurant. Says he had recent normal stress test but never a cardiac cath. On Hospitalization: Patient was admitted for evaluation of chest pain to rule out cardiac pathology. on ED EKG showed NSR with borderline LVH, repeat ekg showed NSR with no abnormal findings. Trops x3 negative, CX ray portable was negative, UA negative, urine tox screen negative, given ASA 81 mg PO daily, Lipid panel remarkable for elevated Triglyceride levels, normal cholesteol and LDL/HDL. restarted on his home medication truvada for HIV prophylaxis, as well as Paxil, risperidone, gabapentin and trazodone for depression/insomnia. DVT prophylaxis with SCDS and GI prophylaxis with protonix 40mg dialy. Patient stated chest pain resolved, clarified original pain was felt mostly on epigastric area. On discharge: Patient is stable to discharge as per Dr Cleveland. Patient to take Protonix 40mg per mouth once a day in the am before meals for 2 weeks for abdominal pain and discomfort. Patient is to follow up with Primary care doctor 7-10 days after discharge. Please make appointment with your primary doctor as soon as you are discharged from the hospital. Patient to continue taking home medications as indicated. Prescription given to patient for home medication for 14 day supply, and instructed to follow up with his PMD. If symptoms recurr or worsen Patient instructed to return to the ER. This is a short summary of patient's hospitalization course. For more information, please refer to patient's EMR - Date & Time of H&P Date of H&P: 12/19/18 Time of H&P: 15:50 Discharge Exam - Head Exam Head Exam: ATRAUMATIC, NORMAL INSPECTION, NORMOCEPHALIC - Eye Exam Eye Exam: EOMI, Normal appearance, PERRL Pupil Exam: NORMAL ACCOMODATION - ENT Exam ENT Exam: Normal Exam - Neck Exam Neck exam: Full Rom - Respiratory Exam Respiratory Exam: Clear to PA & Lateral, NORMAL BREATHING PATTERN, UNREMARKABLE. absent: Rhonchi, Wheezes, Respiratory Distress - Cardiovascular Exam Cardiovascular Exam: REGULAR RHYTHM, +S1, +S2. absent: Tachycardia, Diastolic murmur, Irregular Rhythm - GI/Abdominal Exam GI & Abdominal Exam: Normal Bowel Sounds, Soft, Unremarkable. absent: Tenderness - Extremities Exam Extremities exam: full ROM, pedal pulses present - Neurological Exam Neurological exam: Alert, CN II-XII Intact, Oriented x3 - Psychiatric Exam Psychiatric exam: Normal Affect, Normal Mood - Skin Skin Exam: Dry, Intact, Normal Color, Warm Discharge Plan - Discharge Medications Prescriptions: Emtricitabine/Tenofovir Diso [Truvada 200 MG-300 MG] 1 tab PO DAILY #14 tab Gabapentin [Neurontin] 100 mg PO BID 14 Days #28 cap Pantoprazole Sodium [Protonix] 40 mg PO DAILY #14 tab PARoxetine [Paxil] 10 mg PO DAILY #14 tab Risperidone [Risperdal] 0.25 mg PO DAILY #14 tablet traZODone [Desyrel] 100 mg PO HS #60 tab - Follow Up Plan Condition: GOOD Disposition: HOME/ ROUTINE Instructions: Heart Healthy Diet, Chest Pain (DC), Costochondritis (DC), Pantoprazole Additional Instructions: Patient is stable to discharge as per Dr Cleveland Patient to take Protonix 40mg per mouth once a day in the am before meals for 2 weeks for abdominal pain and discomfort. Patient is to follow up with Primary care doctor 7-10 days after discharge. Please make appointment with your primary doctor as soon as you are discharged from the hospital. Patient to continue taking home medications as indicated. If symptoms recurr or worsen please return to the ER.
--- NOTE | 2018-12-20 12:17 | CARD ---
APPROVED REPORT Date of service: 12/19/2018 EKG Measurement Heart [id number] <Conclusion> Normal sinus rhythm Normal ECG
[2018-12-20 16:30] VITALS: BP 114/71; PULSE 73; TEMP 98.1
--- NOTE | 2018-12-20 18:54 | RAD ---
Date of service: 12/20/2018 HISTORY: Chest pain. COMPARISON: 2018. TECHNIQUE: Chest PA and lateral FINDINGS: LUNGS: No active pulmonary disease. PLEURA: No significant pleural effusion identified. No pneumothorax apparent. CARDIOVASCULAR: No aortic atherosclerotic calcification present. Normal cardiac size. No pulmonary vascular congestion. OSSEOUS STRUCTURES: No significant abnormalities. VISUALIZED UPPER ABDOMEN: Normal. OTHER FINDINGS: None. IMPRESSION: No active disease. No significant interval change compared to the prior examination(s).
--- NOTE | 2018-12-21 12:08 | CARD ---
APPROVED REPORT Date of service: 12/20/2018 EKG Measurement Heart [id number] <Conclusion> Normal sinus rhythm Normal ECG
== END 2018-12-20 18:04 | disposition home or self-care (01) ==
LOC: C.ER 13:31 → C.9E 15:24 → C.6T 18:43
PROVIDERS: ADMIT Hospitalist; ATTEND Hospitalist
DX: M94.0 Chondrocostal junction syndrome [Tietze] (principal); F31.30 Bipolar disorder, current episode depressed, mild or moderate severity, unspecified; F41.9 Anxiety disorder, unspecified; G47.00 Insomnia, unspecified; Z59.0 Homelessness; F17.210 Nicotine dependence, cigarettes, uncomplicated; Z86.19 Personal history of other infectious and parasitic diseases
CPT/HCPCS: 36415; 71045; 71046; 80053; 80061; 80320; 80324; 80345; 80346; 80349; 80353; 80358; 80361; 81001; 83880; 83992; 84484; 85025; 85378; 85610; 85730; 93005; 99285; C9113; G0378